=== PATIENT | female | born 1965 | race Caucasian/White ===

== ENCOUNTER 2019-11-27 13:44 | Outpatient (REF) | payer OTHER, SELFPAY ==
[2019-11-27 17:27] LABS: Estimated Average Glucose 301 mg/dL; Hemoglobin A1c % 12.1 %
[2019-11-27 17:33] LABS: Creatinine Urine 68.24 mg/dL; Microalbum/Creatinine Ratio Ur 13.1 ug/mg cr
== END 2019-11-27 13:45 | disposition home or self-care (01) ==
LOC: HO.HMGCLDS 13:44
PROVIDERS: PCP Internal Medicine; Visit Provider Internal Medicine
DX: E11.65 Type 2 diabetes mellitus with hyperglycemia (principal); E78.2 Mixed hyperlipidemia; E66.9 Obesity, unspecified; I10 Essential (primary) hypertension
CPT/HCPCS: 82043; 83036

== ENCOUNTER 2019-12-06 16:06 | Outpatient (REF) | payer OTHER, SELFPAY ==
--- NOTE | 2019-12-06 16:20 | US_ITS ---
EXAMINATION: US SOFT TISSUE, NECK CLINICAL INFORMATION: Localized swelling/mass left neck COMPARISON: None TECHNIQUE: Linear high frequency ultrasound of the left neck soft tissues is targeted to the area of concern as indicated by the patient. Comparison imaging right neck also performed. FINDINGS: Palpable fullness corresponds to 3 lymph nodes at level 3 left neck each approximately 0.9 cm short axis with normal renetta architecture and normal color flow. There are no cystic nodes or nodes with calcification. There is no cystic or solid soft tissue mass. No edema tracking in soft tissue planes. Comparison imaging right neck also shows a similar appearing node level 3 measuring 0.9 cm with normal renetta architecture. US/US soft tiss head and/or neck IMPRESSION: The palpable fullness left neck corresponds to 3 lymph nodes with normal renetta architecture and color flow, each approximately 0.9 cm. Otherwise, no cystic or solid mass or edema tracking in soft tissue plane.
== END 2019-12-06 16:07 | disposition home or self-care (01) ==
LOC: HO.HMGCX 16:06
PROVIDERS: PCP Internal Medicine; Visit Provider Nurse Practitioner Family
DX: R22.1 Localized swelling, mass and lump, neck (principal)
CPT/HCPCS: 76536

== ENCOUNTER 2020-03-26 10:41 | Outpatient (REF) | payer OTHER, SELFPAY ==
[2020-03-26 13:57] LABS: MANUAL DIFF FLAG NO
[2020-03-26 14:14] LABS: Basophils Percent Auto 0.4 % (0-2); Eosinophils Absolute Auto 0.2 X10*3/uL (0.0-0.4); Eosinophils Percent Auto 2.2 % (0-4); Hematocrit 38.6 % (37-47); Hemoglobin 12.5 g/dl (12.0-16.0); Imm Gran Abs Auto 0.02 X10*3/uL (0.00-0.03); Imm Gran Pct Auto 0.2 % (0.0-0.4); Lymphocytes Absolute Auto 2.4 X10*3/uL (1.2-4.9); Lymphocytes Percent Auto 28.3 % (20-40); Mean Corpuscular HGB Conc 32.4 g/dl (31.0-35.0); Mean Corpuscular Volume 86.4 fL (80-98); Mean Platelet Volume 10.9 fL (9.4-12.3); Monocytes Absolute Auto 0.5 X10*3/uL (0.1-1.2); Monocytes Percent Auto 5.4 % (2-11); Neutrophils Absolute Auto 5.3 X10*3/uL (2.0-8.3); Neutrophils Percent Auto 63.5 % (45-73); Platelet Count 272 X10*3/uL (160-400); Red Blood Count 4.47 X10*6/uL (4.20-5.50); Red Cell Distribution Width 13.1 % (11.0-16.0); White Blood Count 8.3 X10*3/uL (4.8-10.8)
[2020-03-26 14:25] LABS: Alanine Aminotransferase 26 U/L (0-31); Anion Gap 17 (12-20); Aspartate Amino Transferase 23 U/L (5-31); Blood Urea Nitrogen 17 mg/dL (9-16); Calcium 9.7 mg/dL (8.4-10.2); Carbon Dioxide 28 mmol/L (22-29); Chloride 97 mmol/L (96-108); Cholesterol 191 mg/dL; Estimated Glomerular Filt Rate > 60; Glucose Fasting 146 mg/dL (60-99); HDL Cholesterol 39 mg/dL; LDL Cholesterol Calculated 109 mg/dl; Potassium 3.5 mmol/L (3.3-5.1); Sodium 138 mmol/L (135-145); Triglycerides 218 mg/dL
[2020-03-26 14:52] LABS: TSH reflex Free T4 4.31 uIU/mL (0.32-4.0)
[2020-03-26 15:31] LABS: Free T4 (Free Thyroxine) 1.19 ng/dL (0.71-1.85)
== END 2020-03-26 10:42 | disposition home or self-care (01) ==
LOC: HO.HMGCLDS 10:41
PROVIDERS: Nurse Practitioner Family; PCP Internal Medicine; Visit Provider Internal Medicine
DX: E11.65 Type 2 diabetes mellitus with hyperglycemia (principal); E66.9 Obesity, unspecified; E78.2 Mixed hyperlipidemia; I10 Essential (primary) hypertension; R22.1 Localized swelling, mass and lump, neck; M54.2 Cervicalgia
CPT/HCPCS: 36415; 80048; 80061; 84439; 84443; 84450; 84460; 85025

== ENCOUNTER → 2020-05-20 09:04 | Outpatient (BNVA) | payer OTHER, SELFPAY | PROVIDERS: PCP Internal Medicine; Visit Provider Nurse Practitioner Gerontology | DX: E11.65 Type 2 diabetes mellitus with hyperglycemia (principal); E78.5 Hyperlipidemia, unspecified; I10 Essential (primary) hypertension; E66.01 Morbid (severe) obesity due to excess calories; Z68.41 Body mass index [BMI] 40.0-44.9, adult; R79.89 Other specified abnormal findings of blood chemistry | CPT/HCPCS: 82947 ==

== ENCOUNTER 2020-05-20 10:52 | Outpatient (REF) | payer OTHER, SELFPAY ==
[2020-05-20 12:53] LABS: Free T4 (Free Thyroxine) 0.95 ng/dL (0.71-1.85); Thyroid Stimulating Hormone 4.48 uIU/mL (0.32-4.0)
[2020-05-21 10:47] LABS: Thyroglobulin Antibodies <1 IU/mL (< or = 1); Thyroid Peroxidase Antibodies <1 IU/mL (<9)
== END 2020-05-20 10:53 | disposition home or self-care (01) ==
LOC: HO.10HDL 10:52
PROVIDERS: Visit Provider Nurse Practitioner Gerontology
DX: R94.6 Abnormal results of thyroid function studies (principal)
CPT/HCPCS: 36415; 84439; 84443; 86376; 86800

== ENCOUNTER → 2020-06-05 09:03 | Outpatient (BNVA) | payer OTHER, SELFPAY | PROVIDERS: PCP Internal Medicine; Visit Provider Dietitian, Registered | DX: E11.65 Type 2 diabetes mellitus with hyperglycemia (principal) | CPT/HCPCS: 97802 ==

== ENCOUNTER 2021-01-08 12:13 | Emergency (ER) | payer OTHER, SELFPAY ==
[2021-01-08 12:22] VITALS: BP 120/77; PULSE 89; RESP 18; TEMP 36.6; O2SAT 99; BMI 39.9
[2021-01-08 12:31] LABS: Glucose, Whole Blood 368 mg/dL (60-115)
[2021-01-08 13:40] LABS: Hematocrit 41.4 % (37.0-47.0); Mean Corpuscular HGB Conc 33.8 g/dl (31.0-35.0); Mean Corpuscular Hemoglobin 28.5 pg (27.0-33.0); Mean Corpuscular Volume 84.1 fL (80.0-98.0); Mean Platelet Volume 11.5 fL (9.4-12.3); Platelet Count 264 X10*3/uL (160-400); Red Blood Count 4.92 X10*6/uL (4.20-5.50); Red Cell Distribution Width 13.1 % (11.0-16.0); White Blood Count 12.1 X10*3/uL (4.8-10.8)
[2021-01-08 13:57] LABS: Anion Gap 14 (12-20); Blood Urea Nitrogen 15 mg/dL (9-16); Calcium 9.7 mg/dL (8.4-10.2); Carbon Dioxide 25 mmol/L (22-29); Chloride 100 mmol/L (96-108); Creatinine Clr Calc Pharmacy 80.5; Estimated Glomerular Filt Rate 59; Glucose Random 393 mg/dL (60-115); Lipase 182 U/L (8-78); Potassium 4.2 mmol/L (3.3-5.1); Sodium 135 mmol/L (135-145)
--- NOTE | 2021-01-08 14:14 | ED.GENADULT ---
HPI - General Adult General Chief complaint: General Medical Stated complaint: HBS Time Seen by Provider: 01/08/21 14:14 Source: patient Mode of arrival: ambulatory Limitations: no limitations History of Present Illness HPI narrative: 55-year-old female with past medical history of hypothyroidism, diabetes, hypertension, hyperlipidemia, obesity, is here today for complaints of weakness, malaise, excessive thirst. Patient reports that she was unable to check her blood sugar in the last few days. Patient is on metformin 1000 mg twice a day, Jardiance 10 mg daily, Trulicity 0.75 mg weekly. Patient reports that for the last 2 weeks she has not taken her Trulicity. Patient reports that by mistake the medication was taken out of the refrigerator and was placed on top of the refrigerator and she was not able to use it. Patient denies any nausea, vomiting, diarrhea, chest pain, palpitation, SOB with or without exertion. Onset (ago): day(s) Related Data Home Medications Medication Instructions Recorded Confirmed dextroamphetamine-amphetamine 20 1 tab PO BID 03/28/20 05/20/20 mg tablet buprenorphine 8 mg-naloxone 2 mg 10 mg SUBLINGUAL BID 05/20/20 05/20/20 sublingual film lamotrigine 25 mg tablet 25 mg PO tab 05/20/20 05/20/20 sertraline 100 mg tablet 100 mg PO Q OTHER DAY PRN tab 05/20/20 05/20/20 metformin 500 mg tablet 500 mg PO BEDTIME tab 06/02/20 Previous Rx's Medication Instructions Recorded blood-glucose meter (FreeStyle #1 ea 12/05/19 Lite Meter) FreeStyle Lancets 28 gauge #100 ea NS 05/20/20 (lancets) FreeStyle Lite Strips (blood sugar #100 ea NS 05/20/20 diagnostic) eszopiclone 2 mg tablet 2 mg PO BEDTIME #10 tab 07/15/20 empagliflozin 10 mg tablet 10 mg PO QAM #30 tab 07/30/20 (Jardiance) atorvastatin 10 mg tablet 10 mg PO DAILY #90 tab 10/21/20 hydrochlorothiazide 25 mg tablet 25 mg PO QAM #90 tab 10/21/20 olmesartan 20 mg tablet 20 mg PO DAILY #90 tab 10/21/20 dulaglutide 0.75 mg/0.5 mL 0.75 mg (0.5 mL) SUBCUT QWEEK #6 ml 11/03/20 subcutaneous pen injector (Trulicity) metformin 500 mg tablet 1,000 mg PO BID #360 tab 11/10/20 levothyroxine 25 mcg tablet 25 mcg PO DAILY #90 tab 11/11/20 celecoxib 200 mg capsule 200 mg PO DAILY PRN #30 cap 01/06/21 dulaglutide 0.75 mg/0.5 mL 0.75 mg (0.5 mL) SUBCUT QWEEK #2 ml 01/08/21 subcutaneous pen injector (Trulicity) Allergies Allergy/AdvReac Type Severity Reaction Status Date / Time No Known Allergies Allergy Verified 03/28/20 13:12 Review of Systems Review of Systems: Constitutional : No Weight loss, No Fever, No Chills, No Night Sweats, Fatigue, Malaise ENT/Mouth : No Hearing loss, No Ear Pain, No Nasal Congestion, No Sinus Pain, No Hoarseness, No sore throat, No Rhinorrhea, No Swallowing Difficulty Eyes: No Eye Pain, No Swelling, No Redness, No Foreign Body, No Discharge, No Vision Changes Cardiovascular : No Chest Pain, No SOB, No Dyspnea on Exertion, No Orthopnea, No Edema, No Palpitations Respiratory : No Cough, No Sputum, No Wheezing, No Smoke Exposure, No Dyspnea Gastrointestinal : No Nausea, No Vomiting, No Diarrhea, No Constipation, No abdominal Pain, No Hematochezia, No Melena Genitourinary : no irregular bleeding, No Dysuria, No Urinary Frequency, No Hematuria, No Urinary Incontinence, No Urgency, No Flank Pain, No Urinary Flow Changes, No Hesitancy Musculoskeletal : No joint pain, No Myalgias, No Joint Swelling Skin : No Skin Lesions, No rash Neuro : No Weakness, No Numbness, No Paresthesias, No Loss of Consciousness, No Dizziness, No Headache Psych : No Anxiety/Panic, No Depression, No SI/HI/AH/VH, No Social Issues, Endocrine: Patient reports that she has been feeling very thirsty in the past few weeks drinking lots of fluids. Yes all other systems are reviewed and are negative PMFSH Past Medical History Medical History Attention deficit disorder (ADD) Degenerative disc disease, lumbar Depression Diabetes mellitus with hyperglycemia, without long-term current use of insulin Essential hypertension Hyperlipidemia LDL goal <100 Mixed dyslipidemia Obesity Obesity due to excess calories Obstructive sleep apnea on CPAP Opiate addiction Surgical History History of lumbar fusion Hx of mammogram Family History Family History Brother Diabetes mellitus Father Diabetes mellitus Mother Diabetes mellitus Coronary artery disease Son Opiate addiction Daughter Attention deficit disorder (ADD), child, with hyperactivity Social History Social History Household Members: Spouse Alcohol intake: never Patient Tobacco Use Status: Never used Tobacco Use of substances other than those prescribed or required for medical reasons: No Advance Directives: No Advance Directives Information Provided: No Physical Exam Vital Signs: Vital Signs: Last Vital Signs Temp 98 F 01/08/21 12:22 Pulse 77 01/08/21 15:20 Resp 18 01/08/21 15:20 BP 137/73 01/08/21 15:20 Pulse Ox 100 01/08/21 15:20 BMI result Body Mass Index 39.9 Const: General: healthy appearing, no acute distress and well developed Nutritional Appearance: well nourished Orientation/consciousness: patient oriented x3 HENMT: Head: Yes normal to inspection, Yes normocephalic and Yes atraumatic Face and sinus: Yes normal facial exam Mouth: Normal oral and palatal mucosa present Throat: Yes posterior oropharynx normal, Yes tonsils normal and Yes uvula midline Eyes: General: appearance normal, both eyes and all related structures Neck: Neck: Yes normal visual inspection, Yes full ROM and Yes trachea midline Thyroid: Thyroid normal Resp: Effort & Inspection: normal respiratory effort, able to speak in complete sentences, no tracheal deviation and symmetric chest movement Auscultation: clear to auscultation bilaterally Cardio: Jugular venous distension: no JVD Rate: regular rate Heart sounds: S1 normal heart sound present, S2 normal heart sound present, no gallops and no murmurs GI: Inspection: Yes normal to inspection and No distended Palpation (GI): Soft to palpation, not firm, nontender and No hepatosplenomegaly present Auscultation: normal bowel sounds : General: Yes no CVA tenderness Back/Spine/Pelvis: Back: no CVA tenderness Skin: General skin exam: elasticity normal, turgor normal and dry skin Neuro: General: patient oriented x3 Psych: Appearance: grossly normal Mental Status: mental status grossly normal Speech and movement: Normal speech and movement present Affect: normal affect Attitude: cooperative Thought process: Normal thought process present Thought content: Normal thought content present Insight: Good insight present (Psych) Judgement: Good judgement present (Psych) Course Course Course Narrative: 55-year-old female with past medical history of hypothyroidism, diabetes, hypertension, hyperlipidemia, obesity, degenerative disc disease, obstructive sleep apnea is here today for complaints of malaise and feeling tired for the last few days. In the last couple days patient is having symptoms of polydipsia and polyuria. Patient states that she is unable to check her blood sugar for the last few days. Patient reports that when she was trying to stick her fingers she did not get any blood so she was unable to check that. Discussed with her that she can wash her hands in warm water rubbing hands vigorously to increase the blood flow. Patient reports that she has been trying to call her PCP and her diabetic provider and unable to get an appointment till end of the month. Patient reports that couple weeks ago before things given someone took her Trulicity out of the refrigerator and put it on top of the refrigerator and she was unable to use it. Patient reports that she has not used her Trulicity for 2 weeks now. Has not had any refills on it. Patient takes metformin 1000 mg med in the morning and at night as well as Jardiance daily. Will give her 5 units of insulin fluids and will recheck her blood sugar. Basic lab work done and it's all negative. Normal anion gap. Reevaluation(s) Reevaluation #1: Blood sugar recheck 222. Urine is negative for ketones. will send patient home to follow-up with PCP. I will order Trulicity for her as patient does not have it anymore at home. Patient has an appointment with her diabetic provider and was urged to call for earlier appointment. Patient is agreeable to plan of care and verbalizes understanding of instructions. The patient questions answered. Medical Decision Making Lab Data Result diagrams: 01/08/21 13:28 01/08/21 13:28 Labs: Lab Results 01/08/21 01/08/21 01/08/21 Range/Units 12:26 13:28 13:28 WBC 12.1 H (4.8-10.8) X10*3/uL RBC 4.92 (4.20-5.50) X10*6/uL Hgb 14.0 (12.0-16.0) g/dl Hct 41.4 (37.0-47.0) % MCV 84.1 (80.0-98.0) fL MCH 28.5 (27.0-33.0) pg MCHC 33.8 (31.0-35.0) g/dl RDW 13.1 (11.0-16.0) % Plt Count 264 (160-400) X10*3/uL MPV 11.5 (9.4-12.3) fL Absolute Nucleated RBC 0.000 (0.0-0.012) X10*3/uL Nucleated RBC % (auto) 0.0 (0.0-0.2) /100WBC Sodium 135 (135-145) mmol/L Potassium 4.2 (3.3-5.1) mmol/L Chloride 100 (96-108) mmol/L Carbon Dioxide 25 (22-29) mmol/L Anion Gap 14 (12-20) BUN 15 (9-16) mg/dL Creatinine 0.98 (0.5-1.4) mg/dL Estim Creat Clear Calc 80.5 Estimated GFR 59 POC Glucose 368 H* (60-115) mg/dL Random Glucose 393 H* (60-115) mg/dL Calcium 9.7 (8.4-10.2) mg/dL Lipase 182 H (8-78) U/L Urine Color Urine Appearance Urine pH (5.0-8.0) Ur Specific [place] (1.005-1.025) Urine Protein (NEG-TRACE) MG/DL Urine Glucose (UA) (NEG) MG/DL Urine Ketones (NEG) MG/DL Urine Blood (NEG) Urine Nitrite (NEG) Ur Leukocyte Esterase (NEG) Urine RBC (0) /HPF Urine WBC (0-4) /HPF Ur Squamous Epith Cells /LPF Urine Bacteria /LPF Urine Yeast /HPF COVID-19 (TONYA) (Negative) COVID-19 Clin Com 01/08/21 01/08/21 01/08/21 Range/Units 14:50 14:50 16:26 WBC (4.8-10.8) X10*3/uL RBC (4.20-5.50) X10*6/uL Hgb (12.0-16.0) g/dl Hct (37.0-47.0) % MCV (80.0-98.0) fL MCH (27.0-33.0) pg MCHC (31.0-35.0) g/dl RDW (11.0-16.0) % Plt Count (160-400) X10*3/uL MPV (9.4-12.3) fL Absolute Nucleated RBC (0.0-0.012) X10*3/uL Nucleated RBC % (auto) (0.0-0.2) /100WBC Sodium (135-145) mmol/L Potassium (3.3-5.1) mmol/L Chloride (96-108) mmol/L Carbon Dioxide (22-29) mmol/L Anion Gap (12-20) BUN (9-16) mg/dL Creatinine (0.5-1.4) mg/dL Estim Creat Clear Calc Estimated GFR POC Glucose 222 H (60-115) mg/dL Random Glucose (60-115) mg/dL Calcium (8.4-10.2) mg/dL Lipase (8-78) U/L Urine Color STRAW Urine Appearance CLEAR Urine pH 5.5 (5.0-8.0) Ur Specific [place] 1.020 (1.005-1.025) Urine Protein NEG (NEG-TRACE) MG/DL Urine Glucose (UA) >=1000 H (NEG) MG/DL Urine Ketones NEG (NEG) MG/DL Urine Blood NEG (NEG) Urine Nitrite NEG (NEG) Ur Leukocyte Esterase NEG (NEG) Urine RBC 0-2 (0) /HPF Urine WBC 0 (0-4) /HPF Ur Squamous Epith Cells 2+ /LPF Urine Bacteria NONE /LPF Urine Yeast TRACE /HPF COVID-19 (TONYA) Negative (Negative) COVID-19 Clin Com See Note Discharge Plan Discharge Clinical Impression: Hyperglycemia Patient Disposition: Home, Self-Care Instructions: Diabetic Hyperglycemia (ED) Additional Instructions: You were seen here today for high blood glucose level. 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 Prescriptions: New Trulicity 0.75 mg/0.5 mL pen injector 0.75 mg subcut QWEEK Qty: 2 RF: 0 No Action (DME) blood-glucose meter [FreeStyle Lite Meter] Kit See Rx Instructions .ROUTE .MEDSUPPLY Qty: 1 RF: 0 metformin 500 mg tablet 500 mg PO BEDTIME RF: 0 eszopiclone 2 mg tablet 2 mg PO BEDTIME Qty: 10 RF: 0 Jardiance 10 mg tablet 10 mg PO QAM Qty: 30 RF: 0 olmesartan 20 mg tablet 20 mg PO DAILY Qty: 90 RF: 0 atorvastatin 10 mg tablet 10 mg PO DAILY Qty: 90 RF: 0 hydrochlorothiazide 25 mg tablet 25 mg PO QAM Qty: 90 RF: 0 Trulicity 0.75 mg/0.5 mL pen injector 0.75 mg subcut QWEEK Qty: 6 RF: 1 metformin 500 mg tablet 1,000 mg PO BID Qty: 360 RF: 1 levothyroxine 25 mcg tablet 25 mcg PO DAILY Qty: 90 RF: 0 celecoxib 200 mg capsule 200 mg PO DAILY PRN (Reason: pain) Qty: 30 RF: 0 dextroamphetamine-amphetamine 20 mg tablet 1 tab PO BID RF: 0 lamotrigine 25 mg tablet 25 mg PO RF: 0 sertraline 100 mg tablet 100 mg PO Q OTHER DAY PRNRF: 0 buprenorphine-naloxone 8-2 mg film 10 mg sublingual BID RF: 0 (DME) lancets [FreeStyle Lancets] 28 gauge misc See Rx Instructions .ROUTE .MEDSUPPLY Qty: 100 RF: 5 (DME) FreeStyle Lite Strips Strip See Rx Instructions .ROUTE .MEDSUPPLY Qty: 100 RF: 6 Referrals: Lucrecia Fitch MD [Primary Care Provider] - 1 week Interventions: ED Discharge Assessment Last Done: 01/08/21 17:48 Discharge Date/Time: 01/08/21 17:48
[2021-01-08 14:59] LABS: Appearance Urine CLEAR; Color Urine STRAW; Glucose Urine UA >=1000 MG/DL (NEG); Leukocyte Esterase Urine NEG (NEG); Nitrite Urine NEG (NEG); PH 5.5 (5.0-8.0); Urine Blood NEG (NEG); Urine Ketones NEG (NEG); Urine Protein NEG (NEG-TRACE)
[2021-01-08 15:07] LABS: Squamous Epithelial Cell Urine 2+ /LPF; WBC Urine 0 /HPF (0-4)
[2021-01-08 15:08] LABS: RBC Urine 0-2 /HPF (0)
[2021-01-08] MEDS: 0.9 % Sodium Chloride 1,000 ML 999 ML IV (15:13)
[2021-01-08 15:14] LABS: COVID-19 Test Negative (Negative); IDNOW Serial# 9DD0AD1C
[2021-01-08] MEDS: Insulin Regular, Human 100 UNIT/ML 3 ML VIAL IVPUSH (15:18)
[2021-01-08 15:20] VITALS: BP 137/73; PULSE 77; RESP 18; O2SAT 100
[2021-01-08 16:29] LABS: Glucose, Whole Blood 222 mg/dL (60-115)
--- NOTE | 2021-01-08 16:31 | PC.NURSE ---
pt states she's feeling fine . still is tired.
== END 2021-01-08 17:48 | disposition home or self-care (01) ==
PROVIDERS: Nurse Practitioner Family; Emergency Provider Emergency Medicine Emergency Medical Services; PCP Internal Medicine
DX: E11.65 Type 2 diabetes mellitus with hyperglycemia (principal); Z20.822 Contact with and (suspected) exposure to COVID-19; R53.81 Other malaise; E78.5 Hyperlipidemia, unspecified; F11.20 Opioid dependence, uncomplicated; Z91.14 Patient's other noncompliance with medication regimen
CPT/HCPCS: 36415; 80048; 81001; 81003; 82947; 83690; 85027; 87635; 96361; 96374; 99284

== ENCOUNTER → 2021-01-15 11:04 | Outpatient (BNVA) | payer OTHER, SELFPAY | PROVIDERS: PCP Internal Medicine; Visit Provider Nurse Practitioner Gerontology | DX: E11.65 Type 2 diabetes mellitus with hyperglycemia (principal); E78.5 Hyperlipidemia, unspecified; E66.01 Morbid (severe) obesity due to excess calories; I10 Essential (primary) hypertension; Z68.41 Body mass index [BMI] 40.0-44.9, adult; E03.9 Hypothyroidism, unspecified; Z79.84 Long term (current) use of oral hypoglycemic drugs | CPT/HCPCS: 82947; 83036 ==

== ENCOUNTER 2021-05-20 13:54 | Outpatient (REF) | payer OTHER, SELFPAY ==
[2021-05-20 17:05] LABS: Alanine Aminotransferase 18 U/L (0-31); Anion Gap 17 (12-20); Aspartate Amino Transferase 13 U/L (5-31); Blood Urea Nitrogen 15 mg/dL (9-16); Carbon Dioxide 24 mmol/L (22-29); Chloride 101 mmol/L (96-108); Estimated Average Glucose 197 mg/dL; Estimated Glomerular Filt Rate > 60; Glucose Random 310 mg/dL (60-115); Hemoglobin A1c % 8.5 %; Potassium 4.1 mmol/L (3.3-5.1); Sodium 138 mmol/L (135-145)
[2021-05-20 17:29] LABS: Free T4 (Free Thyroxine) 1.15 ng/dL (0.71-1.85); Thyroid Stimulating Hormone 1.16 uIU/mL (0.32-4.0)
[2021-05-23 08:42] LABS: LDL Cholesterol Direct 124 mg/dL (<100)
== END 2021-05-20 13:55 | disposition home or self-care (01) ==
LOC: HO.HMGCLDS 13:54
PROVIDERS: PCP Internal Medicine; Visit Provider Internal Medicine
DX: E11.65 Type 2 diabetes mellitus with hyperglycemia (principal); I10 Essential (primary) hypertension; E03.9 Hypothyroidism, unspecified; E78.5 Hyperlipidemia, unspecified; E66.09 Other obesity due to excess calories; R79.89 Other specified abnormal findings of blood chemistry
CPT/HCPCS: 36415; 80048; 83036; 83721; 84439; 84443; 84450; 84460

== ENCOUNTER → 2021-06-15 11:39 | Outpatient (BNVA) | payer OTHER, SELFPAY | PROVIDERS: PCP Internal Medicine; Visit Provider Nurse Practitioner Gerontology | DX: E78.5 Hyperlipidemia, unspecified (principal); E03.9 Hypothyroidism, unspecified; E66.01 Morbid (severe) obesity due to excess calories; I10 Essential (primary) hypertension; Z68.41 Body mass index [BMI] 40.0-44.9, adult; Z79.899 Other long term (current) drug therapy | CPT/HCPCS: 82947; 96372 ==

== ENCOUNTER → 2021-07-31 08:06 | Outpatient (BNVA) | payer OTHER, SELFPAY | PROVIDERS: PCP Internal Medicine; Visit Provider Nurse Practitioner Gerontology | DX: E11.65 Type 2 diabetes mellitus with hyperglycemia (principal); E03.9 Hypothyroidism, unspecified; E78.5 Hyperlipidemia, unspecified; I10 Essential (primary) hypertension; E66.01 Morbid (severe) obesity due to excess calories; Z68.41 Body mass index [BMI] 40.0-44.9, adult; Z79.4 Long term (current) use of insulin | CPT/HCPCS: 82947 ==

== ENCOUNTER 2021-10-28 11:45 | Outpatient (REF) | payer OTHER, SELFPAY ==
--- NOTE | ~2021-10-28 | XR_ITS ---
EXAMINATION: XR LUMBOSACRAL SPINE CLINICAL INFORMATION: Low back pain COMPARISON: MRI from 11/12/2015 TECHNIQUE: Three views of the lumbosacral spine. FINDINGS: Posterior pedicle screws and fusion rods seen at L5 and S1 vertebral bodies. No evidence of hardware complications. Severe degenerative disc disease with disc space narrowing and osteophyte formation is seen at L5/S1. There is a grade 1 anterolisthesis of L5 on S1 patient is status post laminectomy at the L5. Normal vertebral body height and alignment seen otherwise throughout the lumbar spine. Disc spaces are otherwise well maintained XR/XR lumbar spine 2-3V IMPRESSION: Degenerative changes and postsurgical changes at L5/S1 as described above. Stable anterolisthesis of L5 on S1
[2021-10-28 14:21] LABS: Estimated Average Glucose 229 mg/dL; Hemoglobin A1c % 9.6 %
[2021-10-28 14:31] LABS: Alanine Aminotransferase 16 U/L (0-31); Anion Gap 17 (12-20); Aspartate Amino Transferase 16 U/L (5-31); Blood Urea Nitrogen 14 mg/dL (9-16); Calcium 9.6 mg/dL (8.4-10.2); Carbon Dioxide 23 mmol/L (22-29); Chloride 105 mmol/L (96-108); Cholesterol 214 mg/dL; Estimated Glomerular Filt Rate > 60; Glucose Fasting 135 mg/dL (60-99); HDL Cholesterol 35 mg/dL; LDL Cholesterol Calculated 138 mg/dl; Potassium 4.2 mmol/L (3.3-5.1); Sodium 141 mmol/L (135-145); Triglycerides 207 mg/dL
[2021-10-28 14:52] LABS: Thyroid Stimulating Hormone 3.35 uIU/mL (0.32-4.0)
[2021-10-28 17:57] LABS: Creatinine Urine 66.34 mg/dL; Microalbum/Creatinine Ratio Ur 42.2 ug/mg cr
== END 2021-10-28 11:46 | disposition home or self-care (01) ==
LOC: HO.HMGCX 11:45
PROVIDERS: PCP Internal Medicine; Visit Provider Internal Medicine
DX: E11.65 Type 2 diabetes mellitus with hyperglycemia (principal); G89.29 Other chronic pain; M54.50 Low back pain, unspecified; E78.5 Hyperlipidemia, unspecified; I10 Essential (primary) hypertension; E03.9 Hypothyroidism, unspecified; Z98.1 Arthrodesis status
CPT/HCPCS: 36415; 72100; 80048; 80061; 82043; 83036; 84439; 84443; 84450; 84460

== ENCOUNTER → 2021-12-03 15:34 | Outpatient (BNVA) | payer OTHER, SELFPAY | PROVIDERS: PCP Internal Medicine; Visit Provider Internal Medicine Endocrinology, Diabetes & Metabolism | DX: E11.65 Type 2 diabetes mellitus with hyperglycemia (principal); E03.9 Hypothyroidism, unspecified; I10 Essential (primary) hypertension; Z79.4 Long term (current) use of insulin | CPT/HCPCS: 82947 ==

== ENCOUNTER → 2022-01-25 12:38 | Outpatient (BNVA) | payer OTHER, SELFPAY | PROVIDERS: PCP Internal Medicine; Visit Provider Registered Nurse Diabetes Educator | DX: E11.65 Type 2 diabetes mellitus with hyperglycemia (principal) ==

== ENCOUNTER 2022-04-14 21:12 | Emergency (ER) | payer OTHER, SELFPAY ==
--- NOTE | ~2022-04-14 | XR_ITS ---
EXAMINATION: XR CHEST CLINICAL INFORMATION: Cough COMPARISON: Chest 05/18/2016 TECHNIQUE: Frontal view of the chest was obtained. FINDINGS: No significant abnormality is noted involving the heart, lungs, mediastinum, bony thorax or soft tissues. XR/XR chest 1V IMPRESSION: Unremarkable chest examination.
[2022-04-14 21:16] VITALS: BP 141/80; PULSE 88; RESP 22; TEMP 36.4; O2SAT 95; BMI 39.1
[2022-04-14 21:47] LABS: COVID-19 Test Negative (Negative); IDNOW Serial# 55D5AD1C; IDNOW Serial# 6674DD1D; Influenza A Negative (Negative); Influenza B2 Negative (Negative)
--- NOTE | 2022-04-14 22:10 | ED.SOB ---
HPI - SOB/Dyspnea General Chief Complaint: Dyspnea Stated Complaint: shortness of breath, deep cough Time Seen by Provider: 04/14/22 22:09 Source: patient Mode of arrival: ambulatory Limitations: no limitations History of Present Illness HPI Narrative: Patient obese history of diabetes sleep apnea using CPAP at night high cholesterol nonsmoker complaining of cough mostly dry for last few weeks unable to sleep in the night because of cough feel short of breath on slight ambulation or exertion also noticed increased leg swelling. Denies any calf pain no chest pain or palpitation no fever or chills patient taking lisinopril for hypertension Related Data Home Medications Medication Instructions Recorded Confirmed dextroamphetamine-amphetamine 20 1 tab PO BID 03/28/20 07/31/21 mg tablet blood-glucose meter (Accu-Chek 01/15/21 07/31/21 Guide Glucose Meter) sertraline 100 mg tablet mg PO 10/16/21 clonazepam 0.5 mg tablet 0.5 mg PO TID 12/03/21 clonazepam 1 mg tablet 1 mg PO TID PRN 12/03/21 Previous Rx's Medication Instructions Recorded pen needle, diabetic 32 gauge x #50 ea 01/15/21 (BD Cande 2nd Gen Pen Needle) blood sugar diagnostic (Accu-Chek #100 ea 01/20/21 Guide test strips) flash glucose sensor (FreeStyle #2 ea 03/20/21 Leida 2 Sensor kit) glucose 4 gram chewable tablet 12 g PO Q15M PRN hypoglycemia #60 06/15/21 (Dex4 Glucose) tabs insulin aspart U-100 100 unit/mL 5 - 7 unit (0.05 - 0.07 mL) subcut 07/31/21 (3 mL) subcutaneous pen (Novolog TID 90 days #15 mL FlexPen U-100 Insulin aspart) levothyroxine 25 mcg tablet 25 mcg PO DAILY #90 tabs 07/31/21 celecoxib 200 mg capsule 200 mg PO DAILY PRN pain #30 caps 09/17/21 lisinopril 5 mg tablet 2.5 mg PO DAILY #45 tabs 10/09/21 metformin 500 mg tablet 500 mg PO BIDWMEAL 30 days #60 tabs 10/31/21 atorvastatin 40 mg tablet 80 mg PO DAILY #60 tabs 12/03/21 insulin degludec 200 unit/mL (3 50 unit (0.25 mL) subcut BEDTIME 12/03/21 mL) subcutaneous pen (Tresiba 84 days #21 mL FlexTouch U-200 insulin) empagliflozin 25 mg tablet 25 mg PO QAM #90 tabs 12/18/21 (Jardiance) tirzepatide 5 mg/0.5 mL 5 mg (0.5 mL) subcut QWEEK #2 mL 01/25/22 subcutaneous pen injector (Eun) benzonatate 200 mg capsule 200 mg PO TID PRN cough #30 caps 04/15/22 hydrochlorothiazide 25 mg tablet 25 mg PO QAM #30 tabs 04/15/22 Allergies Allergy/AdvReac Type Severity Reaction Status Date / Time No Known Allergies Allergy Verified 04/14/22 21:19 Review of Systems Review of Systems: Constitutional : No Weight loss, No Fever, No Chills ENT/Mouth : No sore throat, No Rhinorrhea Eyes: No Eye Pain, No Swelling Cardiovascular : No Chest Pain, no palpitations Respiratory : ++ Cough, No Sputum, no shortness of breath Gastrointestinal : no Nausea, No Vomiting, No Diarrhea, No abdominal Pain, no black stools Genitourinary : No Dysuria, No Urinary Frequency Musculoskeletal : No joint pain, No Myalgias, No Joint Swelling Skin : No Skin Lesions, No rash Neuro : No Weakness, No Numbness, No Dizziness, No Headache Psych : No Anxiety/Panic, No Depression Heme/Lymph: No Bruising, No Lymphadenopathy Endocrine : No Polyuria, No Polydipsia All other systems reviewed and are negative Yes all other systems are reviewed and are negative [facility] Past Medical History Medical History Attention deficit disorder (ADD) Chronic low back pain Degenerative disc disease, lumbar Depression Diabetes mellitus with hyperglycemia, without long-term current use of insulin Essential hypertension Hyperlipidemia LDL goal <100 Obesity due to excess calories Obstructive sleep apnea on CPAP Opiate addiction Surgical History History of lumbar fusion Hx of foot surgery Hx of hand surgery Hx of mammogram Family History Family History Brother Diabetes mellitus Father Diabetes mellitus Mother Diabetes mellitus Coronary artery disease Son Opiate addiction Daughter Attention deficit disorder (ADD), child, with hyperactivity Other Mental health disorder Substance use disorder Social History Social History Household Members: Spouse Housing: House Alcohol intake: current Alcohol intake frequency: does not drink Patient Tobacco Use Status: Never used Tobacco e-Cigarette/Vaping Use: Never Used Advance Directives: No Current occupational status: unemployed Cognitive needs: No Hearing needs: No Vision needs: No Physical Exam Vital Signs: Vital Signs: Last Vital Signs Temp 98.2 F 04/14/22 23:29 Pulse 86 04/14/22 23:29 Resp 17 04/14/22 23:29 BP 139/73 04/14/22 23:29 Pulse Ox 96 04/14/22 23:29 O2 Del Method 04/14/22 23:29 BMI result Body Mass Index 39.1 Appearance: Alert. Oriented X3. No acute distress. Eyes: No pallor or icterus ENT: Pharynx normal. Oral Mucosa moist Neck: Normal inspection. Neck supple. CVS: Normal heart rate and rhythm. Pulses normal. Respiratory: No respiratory distress. Equal air entry bilateral, no wheezing/rales/rhonchi Abdomen: Soft and nontender. Bowel sounds are present, no mass palpable, no CVA tenderness Skin: Skin warm and dry. Normal skin color. Normal skin turgor. Extremities: Trace lower extremity edema. No calf tenderness Neuro: Oriented X 3. No motor deficit. No sensory deficit.No cerebellar signs , cranial nerves II-XII intact Medications Administered Discontinued Medications Generic Name Dose Route Start Last Admin Trade Name Freq PRN Reason Stop Dose Admin Benzonatate 200 mg 04/15/22 00:35 04/15/22 00:42 Benzonatate 100 Mg Capsule PO 04/15/22 00:36 200 mg ONCE ONE Administration Medical Decision Making Medical Decision Making [facility] Narrative: Patient with exertion dyspnea likely from deconditioning chest x-ray negative BNP normal D-dimer negative for PE patient is saturating 95% on room air discharge patient home Differential Diagnosis Pneumonia/COPD/sleep apnea/PE/CHF Lab Data [facility] Lab Attestation statement: I reviewed the patient's lab results. 04/14/22 22:58 04/14/22 22:58 Labs: Lab Results 03/08/23 03/08/23 03/08/23 Range/Units 21:21 21:21 22:58 WBC 11.2 H (4.8-10.8) X10*3/uL RBC 4.49 (4.20-5.50) X10*6/uL Hgb 12.2 (12.0-16.0) g/dl Hct 37.3 (37.0-47.0) % MCV 83.1 (80.0-98.0) fL MCH 27.2 (27.0-33.0) pg MCHC 32.7 (31.0-35.0) g/dl RDW 14.4 (11.0-16.0) % Plt Count 306 (160-400) X10*3/uL MPV 10.7 (9.4-12.3) fL Immature Gran % (Auto) 0.4 (0.0-0.4) % Neut % (Auto) 62.9 (45-73) % Lymph % (Auto) 27.2 (20-40) % [place] % (Auto) 5.0 (2-11) % Eos % (Auto) 4.0 (0-4) % Baso % (Auto) 0.5 (0-2) % Lymph # (Auto) 3.1 (1.2-4.9) X10*3/uL [place] # (Auto) 0.6 (0.1-1.2) X10*3/uL Eos # (Auto) 0.5 H (0.0-0.4) X10*3/uL Baso # (Auto) 0.1 (0.0-0.2) X10*3/uL Abs Immat Gran (auto) 0.05 H (0.00-0.03) X10*3/uL Absolute Neuts (auto) 7.0 (2.0-8.3) x10*3/uL Absolute Nucleated RBC 0.000 (0.0-0.012) X10*3/uL Nucleated RBC % (auto) 0.0 (0.0-0.2) /100WBC D-Dimer High Sensitivty NG/ML Sodium (135-145) mmol/L Potassium (3.3-5.1) mmol/L Chloride (96-108) mmol/L Carbon Dioxide (22-29) mmol/L Anion Gap (12-20) BUN (9-16) mg/dL Creatinine (0.5-1.4) mg/dL Estim Creat Clear Calc Estimated GFR Random Glucose (60-115) mg/dL Calcium (8.4-10.2) mg/dL Total Bilirubin (0.0-1.0) mg/dL AST (5-31) U/L ALT (0-31) U/L Alkaline Phosphatase (39-117) U/L B-Natriuretic Peptide (<100) pg/mL Total Protein (6.5-8.0) g/dL Albumin (3.5-5.0) g/dL COVID-19 (TONYA) Negative (Negative) COVID-19 Clin Com See Note Influenza Type A (BENNETT) Negative (Negative) Influenza Type B (BENNETT) Negative (Negative) Influenza A & B Note See Note 04/14/22 04/14/22 04/14/22 Range/Units 22:58 22:58 22:58 WBC (4.8-10.8) X10*3/uL RBC (4.20-5.50) X10*6/uL Hgb (12.0-16.0) g/dl Hct (37.0-47.0) % MCV (80.0-98.0) fL MCH (27.0-33.0) pg MCHC (31.0-35.0) g/dl RDW (11.0-16.0) % Plt Count (160-400) X10*3/uL MPV (9.4-12.3) fL Immature Gran % (Auto) (0.0-0.4) % Neut % (Auto) (45-73) % Lymph % (Auto) (20-40) % [place] % (Auto) (2-11) % Eos % (Auto) (0-4) % Baso % (Auto) (0-2) % Lymph # (Auto) (1.2-4.9) X10*3/uL [place] # (Auto) (0.1-1.2) X10*3/uL Eos # (Auto) (0.0-0.4) X10*3/uL Baso # (Auto) (0.0-0.2) X10*3/uL Abs Immat Gran (auto) (0.00-0.03) X10*3/uL Absolute Neuts (auto) (2.0-8.3) x10*3/uL Absolute Nucleated RBC (0.0-0.012) X10*3/uL Nucleated RBC % (auto) (0.0-0.2) /100WBC D-Dimer High Sensitivty < 150 NG/ML Sodium 138 (135-145) mmol/L Potassium 4.0 (3.3-5.1) mmol/L Chloride 103 (96-108) mmol/L Carbon Dioxide 27 (22-29) mmol/L Anion Gap 12 (12-20) BUN 11 (9-16) mg/dL Creatinine 0.83 (0.5-1.4) mg/dL Estim Creat Clear Calc 92.8 Estimated GFR > 60 Random Glucose 231 H (60-115) mg/dL Calcium 9.1 (8.4-10.2) mg/dL Total Bilirubin 0.4 (0.0-1.0) mg/dL AST 12 (5-31) U/L ALT 14 (0-31) U/L Alkaline Phosphatase 107 (39-117) U/L B-Natriuretic Peptide < 10 (<100) pg/mL Total Protein 6.8 (6.5-8.0) g/dL Albumin 4.0 (3.5-5.0) g/dL COVID-19 (TONYA) (Negative) COVID-19 Clin Com Influenza Type A (BENNETT) (Negative) Influenza Type B (BENNETT) (Negative) Influenza A & B Note Discharge Plan Discharge Clinical Impression: Breathlessness on exertion, Cough Patient Disposition: Home, Self-Care Instructions: Dyspnea (ED), Acute Cough (ED) Additional Instructions: Take cough drops and advised Your cough possible secondary to lisinopril Cough drops as advised if the cough continues you may have to stop lisinopril Water pill for leg swelling as needed daily Follow with PCP Prescriptions: New benzonatate 200 mg capsule 200 mg PO TID PRN (Reason: cough) Qty: 30 0RF hydrochlorothiazide 25 mg tablet 25 mg PO QAM Qty: 30 0RF No Action (DME) Accu-Chek Guide test strips Strip See Rx Instructions .Route Qty: 100 11RF Rx Instructions: As directed 3 times a day (DME) FreeStyle Leida 2 Sensor Kit See Rx Instructions .ROUTE .MEDSUPPLY Qty: 2 11RF Rx Instructions: As directed every 2 weeks celecoxib 200 mg capsule 200 mg PO DAILY PRN (Reason: pain) Qty: 30 1RF lisinopril 5 mg tablet 2.5 mg PO DAILY Qty: 45 1RF metformin 500 mg tablet 500 mg PO BIDWMEAL 30 Days Qty: 60 4RF Jardiance 25 mg tablet 25 mg PO QAM Qty: 90 1RF Mounjaro 5 mg/0.5 mL pen injector 5 mg subcut QWEEK Qty: 2 5RF dextroamphetamine-amphetamine 20 mg tablet 1 tab PO BID sertraline 100 mg tablet PO (DME) blood-glucose meter [Accu-Chek Guide Glucose Meter] [facility] [place] [facility] See Rx Instructions .Route Rx Instructions: As directed (DME) pen needle, diabetic [BD Cande 2nd Gen Pen Needle] 32 gauge x 5/32 needle See Rx Instructions .ROUTE .MEDSUPPLY Qty: 50 10RF Rx Instructions: As directed once daily glucose [Dex4 Glucose] 4 gram tablet,chewable 12 g PO Q15M PRN (Reason: hypoglycemia) Qty: 60 2RF Rx Instructions: until symptoms of low blood sugar are controlled insulin aspart U-100 [Novolog FlexPen U-100 Insulin] 100 unit/mL (3 mL) insulin pen 5 - 7 unit subcut TID 90 Days Qty: 15 2RF levothyroxine 25 mcg tablet 25 mcg PO DAILY Qty: 90 3RF clonazepam 1 mg tablet 1 mg PO TID PRN clonazepam 0.5 mg tablet 0.5 mg PO TID Tresiba FlexTouch U-200 200 unit/mL (3 mL) insulin pen 50 unit subcut BEDTIME 84 Days Qty: 21 2RF atorvastatin 40 mg tablet 80 mg PO DAILY Qty: 60 6RF Interventions: ED Discharge Assessment Last Done: 04/15/22 00:58 Discharge Date/Time: 04/15/22 01:00
[2022-04-14 22:53] VITALS: BP 136/77; PULSE 83; RESP 18; TEMP 36.7; O2SAT 96
[2022-04-14 23:04] LABS: Basophils Absolute Auto 0.1 X10*3/uL (0.0-0.2); Basophils Percent Auto 0.5 % (0-2); Eosinophils Absolute Auto 0.5 X10*3/uL (0.0-0.4); Hematocrit 37.3 % (37.0-47.0); Hemoglobin 12.2 g/dl (12.0-16.0); Imm Gran Abs Auto 0.05 X10*3/uL (0.00-0.03); Imm Gran Pct Auto 0.4 % (0.0-0.4); Lymphocytes Absolute Auto 3.1 X10*3/uL (1.2-4.9); Lymphocytes Percent Auto 27.2 % (20-40); MANUAL DIFF FLAG NO; Mean Corpuscular HGB Conc 32.7 g/dl (31.0-35.0); Mean Corpuscular Hemoglobin 27.2 pg (27.0-33.0); Mean Corpuscular Volume 83.1 fL (80.0-98.0); Mean Platelet Volume 10.7 fL (9.4-12.3); Monocytes Absolute Auto 0.6 X10*3/uL (0.1-1.2); Neutrophils Percent Auto 62.9 % (45-73); Platelet Count 306 X10*3/uL (160-400); Red Blood Count 4.49 X10*6/uL (4.20-5.50); Red Cell Distribution Width 14.4 % (11.0-16.0); White Blood Count 11.2 X10*3/uL (4.8-10.8)
[2022-04-14 23:17] LABS: D Dimer High Sensitivity < 150 NG/ML
[2022-04-14 23:25] LABS: Alanine Aminotransferase 14 U/L (0-31); Alkaline Phosphatase 107 U/L (39-117); Anion Gap 12 (12-20); Aspartate Amino Transferase 12 U/L (5-31); Bilirubin Total 0.4 mg/dL (0.0-1.0); Blood Urea Nitrogen 11 mg/dL (9-16); Calcium 9.1 mg/dL (8.4-10.2); Carbon Dioxide 27 mmol/L (22-29); Chloride 103 mmol/L (96-108); Creatinine Clr Calc Pharmacy 92.8; Estimated Glomerular Filt Rate > 60; Glucose Random 231 mg/dL (60-115); Sodium 138 mmol/L (135-145); Total Protein 6.8 g/dL (6.5-8.0)
[2022-04-14 23:29] VITALS: BP 139/73; PULSE 86; RESP 17; TEMP 36.8; O2SAT 96
[2022-04-15 00:20] LABS: B Type Natriuretic Peptide < 10 pg/mL (<100)
[2022-04-15] MEDS: Benzonatate 100 MG CAPSULE 200 MG PO (00:42)
== END 2022-04-15 01:00 | disposition home or self-care (01) ==
PROVIDERS: Emergency Provider Internal Medicine; PCP Internal Medicine
DX: R05.9 Cough, unspecified (principal); R06.02 Shortness of breath; Z20.822 Contact with and (suspected) exposure to COVID-19; E11.9 Type 2 diabetes mellitus without complications; I10 Essential (primary) hypertension; E78.5 Hyperlipidemia, unspecified; F11.20 Opioid dependence, uncomplicated; G47.33 Obstructive sleep apnea (adult) (pediatric); E66.9 Obesity, unspecified; Z68.39 Body mass index [BMI] 39.0-39.9, adult; Z99.89 Dependence on other enabling machines and devices; Z79.899 Other long term (current) drug therapy; Z79.02 Long term (current) use of antithrombotics/antiplatelets; Z79.4 Long term (current) use of insulin
CPT/HCPCS: 36415; 71045; 80053; 83880; 85025; 85379; 87502; 87635; 99283

== ENCOUNTER 2022-08-03 07:29 | Outpatient (REF) | payer OTHER, SELFPAY ==
[2022-08-03 11:42] LABS: Estimated Average Glucose 209 mg/dL; Hemoglobin A1c % 8.9 %
[2022-08-03 12:08] LABS: Alanine Aminotransferase 22 U/L (0-31); Anion Gap 16 (12-20); Aspartate Amino Transferase 16 U/L (5-31); Blood Urea Nitrogen 12 mg/dL (9-16); Calcium 9.5 mg/dL (8.4-10.2); Carbon Dioxide 24 mmol/L (22-29); Chloride 104 mmol/L (96-108); Cholesterol 231 mg/dL; Estimated Glomerular Filt Rate > 60; Glucose Fasting 199 mg/dL (60-99); HDL Cholesterol 34 mg/dL; LDL Cholesterol Calculated 142 mg/dl; Potassium 3.7 mmol/L (3.3-5.1); Sodium 140 mmol/L (135-145); Triglycerides 279 mg/dL
== END 2022-08-03 07:30 | disposition home or self-care (01) ==
LOC: HO.HMGCLDS 07:29
PROVIDERS: PCP Internal Medicine; Visit Provider Internal Medicine
DX: E11.65 Type 2 diabetes mellitus with hyperglycemia (principal); E78.5 Hyperlipidemia, unspecified; G89.29 Other chronic pain; I10 Essential (primary) hypertension; M54.50 Low back pain, unspecified; Z98.1 Arthrodesis status
CPT/HCPCS: 36415; 80048; 80061; 83036; 84450; 84460

== ENCOUNTER 2022-08-17 09:22 | Outpatient (AMB) | payer OTHER, SELFPAY ==
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
[2022-08-17 09:30] VITALS: BP 140/80; PULSE 96; O2SAT 95; BMI 42.9
[2022-08-17 10:19] VITALS: PULSE 78; O2SAT 96
== END 2022-08-17 10:16 | disposition home or self-care (01) ==
PROVIDERS: PCP Internal Medicine; Visit Provider Nurse Practitioner Family
DX: R06.09 Other forms of dyspnea (principal); G47.33 Obstructive sleep apnea (adult) (pediatric); Z99.89 Dependence on other enabling machines and devices; R40.0 Somnolence; R91.8 Other nonspecific abnormal finding of lung field
CPT/HCPCS: 94618; 99204; 99214

== ENCOUNTER → 2022-08-17 09:22 | Outpatient (BNVA) | payer OTHER, SELFPAY | PROVIDERS: PCP Internal Medicine; Visit Provider Nurse Practitioner Family | DX: R06.09 Other forms of dyspnea (principal); G47.33 Obstructive sleep apnea (adult) (pediatric); R40.0 Somnolence; R91.8 Other nonspecific abnormal finding of lung field; Z99.89 Dependence on other enabling machines and devices | CPT/HCPCS: 94618 ==

== ENCOUNTER 2022-09-01 09:25 | Outpatient (REF) | payer OTHER, SELFPAY ==
--- NOTE | 2022-09-01 10:30 | PFT_ITS ---
Forced vital capacity 63%, FEV1 67%, FEV1/FVC ratio is 83. [id number] 85%. MVV 90%. Post bronchodilator therapy, there is a significant improvement in FEV1 and [id number]. Total lung capacity 80%. Residual volume 79%. Diffusion capacity 102% CONCLUSION: There is evidence of mild bronchial asthma with good response to bronchodilator therapy. Clinical correlation recommended. MD KIMBERLY Kaur/NOHELIA / [phone]
== END 2022-09-01 09:26 | disposition home or self-care (01) ==
LOC: HO.RESP 09:25
PROVIDERS: PCP Internal Medicine; Visit Provider Nurse Practitioner Family
DX: R06.09 Other forms of dyspnea (principal)
CPT/HCPCS: 94060; 94727; 94729

== ENCOUNTER → 2022-09-01 10:30 | Outpatient (BNV) | payer OTHER, SELFPAY | PROVIDERS: PCP Internal Medicine; Visit Provider Internal Medicine | DX: R06.09 Other forms of dyspnea (principal) | CPT/HCPCS: 94060; 94727; 94729 ==

== ENCOUNTER 2022-09-09 11:03 | Outpatient (AMB) | payer OTHER, SELFPAY ==
--- NOTE | 2022-09-09 11:28 | A.OFFVIS_ITS ---
Intake Intake Visit Reasons: DM Allergies No Known Allergies Allergy (Verified 04/14/22 21:19) HPI Comprehensive Diabetes Asmnt Most Recent Diabetes Results: Cholesterol 231 mg/dL 08/03/22 HDL Cholesterol 34 mg/dL 08/03/22 Triglycerides 279 mg/dL 08/03/22 Creatinine 0.76 mg/dL (0.5-1.4) 08/03/22 Blood Urea Nitrogen 12 mg/dL (9-16) 08/03/22 Sodium 140 mmol/L (135-145) 08/03/22 Potassium 3.7 mmol/L (3.3-5.1) 08/03/22 Chloride 104 mmol/L (96-108) 08/03/22 Carbon Dioxide 24 mmol/L (22-29) 08/03/22 Calcium 9.5 mg/dL (8.4-10.2) 08/03/22 AST 16 U/L (5-31) 08/03/22 ALT 22 U/L (0-31) 08/03/22 Total Protein 6.8 g/dL (6.5-8.0) 04/14/22 Albumin 4.0 g/dL (3.5-5.0) 04/14/22 [facility] Medical History (Updated 08/17/22 @ 13:08 by Genie Mixon NP) Attention deficit disorder (ADD) Chronic cough Chronic low back pain Degenerative disc disease, lumbar Depression Diabetes mellitus with hyperglycemia, without long-term current use of insulin Essential hypertension Hyperlipidemia LDL goal <100 Obesity due to excess calories Obstructive sleep apnea on CPAP Opiate addiction Pulmonary nodules/lesions, multiple Surgical History History of lumbar fusion Hx of foot surgery Hx of hand surgery Hx of mammogram Family History Brother Diabetes mellitus Father Diabetes mellitus Mother Diabetes mellitus Coronary artery disease Son Opiate addiction Daughter Attention deficit disorder (ADD), child, with hyperactivity Other Mental health disorder Substance use disorder Social History Household Members: Spouse Housing: House Alcohol intake: current Alcohol intake frequency: does not drink Patient Tobacco Use Status: Never used Tobacco e-Cigarette/Vaping Use: Never Used Current occupational status: unemployed Cognitive needs: No Hearing needs: No Vision needs: No Assessment & Plan Assessment & Plan (1) Diabetes mellitus with hyperglycemia, without long-term current use of insulin: Code(s): E11.65 - Type 2 diabetes mellitus with hyperglycemia Qualifiers: Diabetes mellitus type: type 2 Qualified Code(s): E11.65 - Type 2 diabetes mellitus with hyperglycemia Plan: Personal Continuous Glucose Monitor: Patients CGM information reviewed Reviewed patient's sensor data: Hypoglycemia: ? 0 % Hyperglycemia:? 95% Time in Range:? 5% Average glucose for the last 2 weeks 293? 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 Recommended to patient she increase Tresiba to 45 units daily, after 3 days if fasting glucose remains above 150 mg/dL increase to 48 units. Patient has follow-up appointment with Dr. Juarez on 09/24/2022 Recommended to patient she keep portions of carbohydrate between 30-45 g per meal Reviewed with patient the importance of controlling glucose levels to prevent diabetes complications such as, nephropathy, retinopathy, neuropathy, dental problems. Reviewed how to interpret trend arrows Reminded patient that to check finger sticks if symptoms do not match sensor reading. Discussed lag time between finger stick and sensor data.? Patient able to insert sensor independently at home without issue.? Patient Instructions: Patient would like to upgrade to Leida 3 sensor, CMN sent to [facility] Follow-up with special education paraeducator in 2 months Coding Level of Care Code Est Pt Level 1 (58802) Diagnoses Diabetes mellitus with hyperglycemia, without long-term current use of insulin E11.65 Diabetes mellitus type: type 2
== END 2022-09-09 11:48 | disposition home or self-care (01) ==
PROVIDERS: PCP Internal Medicine; Visit Provider Registered Nurse Diabetes Educator
DX: E11.65 Type 2 diabetes mellitus with hyperglycemia (principal)
CPT/HCPCS: 99211

== ENCOUNTER → 2022-09-09 11:03 | Outpatient (BNVA) | payer OTHER, SELFPAY | PROVIDERS: PCP Internal Medicine; Visit Provider Registered Nurse Diabetes Educator ==

== ENCOUNTER 2022-09-14 09:54 | Outpatient (REF) | payer OTHER, SELFPAY ==
--- NOTE | ~2022-09-14 | CT_ITS ---
EXAMINATION: CT CHEST WITHOUT CONTRAST CLINICAL INFORMATION: Pulmonary nodule follow-up. History of cough. COMPARISON: CT chest 01/28/2016. TECHNIQUE: Multidetector volumetric CT imaging of the chest was done. Axial MIP volume rendering provided. Sagittal and coronal reformatted images were obtained. This CT examination was performed using dose optimization techniques as appropriate, variously including the following: *Automated exposure control *Adjustment of mA and/or kV according to patient size (this includes techniques or standardized protocols for targeted exams where dose is matched to indication/reason for exam; i.e. extremities or head) *Use of iterative reconstruction technique DLP: 389 mGy-cm FINDINGS: LUNGS: No acute airspace disease. No interstitial lung disease. The central bronchial airways are open. No bronchiectasis. Lung nodules: Right lun. Stable 6 mm nodule inferior aspect of the right middle lobe axial image 271/471 series 9. 2. Stable small focus of pleural thickening along the major fissure inferior right lung image 268/471 series 9 measures about 3 mm. Left lung: No lung nodule. Small lung nodule at the left major fissure at the left lung base seen on CAT scan 11/28/2015 is not evident on today's exam. No new lung nodules. No suspicious lung nodules. MEDIASTINUM: No mediastinal mass or significant lymphadenopathy. The heart size is normal. No pericardial effusion. No vascular calcifications of aorta and great vessels. CORONARY ARTERY CALCIFICATION: Minimal coronary calcification. PLEURA: There is no pleural effusion. No pleural mass or thickening. AXILLA: No lymphadenopathy. UPPER ABDOMEN: Left adrenal lesion measuring 1.3 cm with density measurement 10 Hounsfield units consistent with an adrenal adenoma. This is unchanged since the CAT scan 11/28/2015. No further follow-up imaging recommended. The right adrenal gland is normal. No abnormality of the visualized portions of liver, spleen, or the pancreas. OSSEOUS STRUCTURES: No acute osteoporotic. Multilevel degenerative spondylosis spine. CT/CT chest wo IV con IMPRESSION: 1. Stable 6 mm nodule right middle lobe. This is unchanged since CAT scan 2015. As per Fleischner guidelines no further follow-up imaging is recommended. No new lung nodules. 2. No acute airspace disease. 3. No acute abnormality of the chest. Fleischner guidelines were followed.
== END 2022-09-14 09:55 | disposition home or self-care (01) ==
LOC: HO.CT 09:54
PROVIDERS: PCP Internal Medicine; Visit Provider Internal Medicine
DX: R91.8 Other nonspecific abnormal finding of lung field (principal); R05.3 Chronic cough
CPT/HCPCS: 71250

== ENCOUNTER 2022-09-21 10:02 | Outpatient (AMB) | payer OTHER, SELFPAY ==
[2022-09-21 10:06] VITALS: BP 128/76; PULSE 86; O2SAT 95; BMI 43.7
--- NOTE | 2022-09-21 10:06 | MHC.OFFVIS ---
Intake Vital Signs 09/21/22 10:06 Height 5 ft 5 in Weight 262 lb 5.601 oz BMI 43.7 BP 128/76 Blood Pressure Location Lt brachial Position Sitting Pulse 86 Pulse Source Pulse Oximeter Pulse Oximetry (%) 95 Oxygen Delivery Method Room Air Intake Visit Reasons: Cough/Pulm nodules Director Of Religious Life Required: No Supervisor International Reservations: Supervisor International Reservations offered & declined Accompanied by: Self / Same As Patient Allergies No Known Allergies Allergy (Verified 09/21/22 10:14) Medication List - Last Reconciled 09/21/22 by Tanya Ritchie LPN albuterol sulfate 90 mcg/actuation 2 puffs inhalation Q4-6H PRN atorvastatin 80 mg (2 x 40 mg) PO DAILY benzonatate 200 mg PO TID PRN blood sugar diagnostic (Accu-Chek Guide test strips) As directed 3 times a day blood-glucose meter (Accu-Chek Guide Glucose Meter) As directed celecoxib 200 mg PO DAILY PRN clonazepam 0.5 mg PO TID clonazepam 1 mg PO TID PRN dextroamphetamine-amphetamine 20 mg 1 tab PO BID empagliflozin (Jardiance) 25 mg PO QAM flash glucose sensor (FreeStyle Leida 2 Sensor kit) As directed every 2 weeks glucose (Dex4 Glucose) 12 grams (3 x 4 gram) PO Q15M PRN hydrochlorothiazide 25 mg PO QAM insulin aspart U-100 (Novolog FlexPen U-100 Insulin aspart) 5 - 7 units (0.05 - 0.07 mL) subcut TID 90 days insulin degludec (Tresiba FlexTouch U-200 insulin) 50 units (0.25 mL) subcut BEDTIME 84 days levothyroxine 25 mcg PO DAILY lisinopril 2.5 mg (1/2 x 5 mg) PO DAILY metformin 500 mg PO BIDWMEAL 30 days pen needle, diabetic (BD Cande 2nd Gen Pen Needle) As directed 4 times daily sertraline mg PO tirzepatide (Mounjaro) 7.5 mg (0.5 mL) subcut QWEEK HPI Cough/Pulm nodules HPI Details Dimple is pleasant 56 year old female, never smoker, with underlying asthma, CHINMAY previously CPAP, pulmonary nodules and morbid obesity. She continues to report dyspnea that limits her activity as well as a dry cough and wheezing. She has her sleep study scheduled and is looking forward to having a CPAP machine again, as she reports significant daytime fatigue. Today she presents to review PFT and chest CT results. [facility] Medical History (Updated 09/22/22 @ 09:02 by Genie Mixon NP) Attention deficit disorder (ADD) Chronic cough Chronic low back pain Degenerative disc disease, lumbar Depression Diabetes mellitus with hyperglycemia, without long-term current use of insulin Essential hypertension Hyperlipidemia LDL goal <100 Obesity due to excess calories Obstructive sleep apnea on CPAP Opiate addiction Pulmonary nodules/lesions, multiple Surgical History History of lumbar fusion Hx of foot surgery Hx of hand surgery Hx of mammogram Family History Brother Diabetes mellitus Father Diabetes mellitus Mother Diabetes mellitus Coronary artery disease Son Opiate addiction Daughter Attention deficit disorder (ADD), child, with hyperactivity Other Mental health disorder Substance use disorder Social History Household Members: Spouse Housing: House Alcohol intake: current Alcohol intake frequency: does not drink Patient Tobacco Use Status: Never used Tobacco e-Cigarette/Vaping Use: Never Used Current occupational status: unemployed Cognitive needs: No Hearing needs: No Vision needs: No Review of Systems Const Denies chills, Denies excessive sweating, Denies fever(s), Denies headache(s) and Denies night sweats Eyes Denies dry eyes, Denies irritation and Denies itchy eyes ENT Reports Normal hearing present, Denies headache(s), Denies nasal congestion, Denies nasal discharge, Denies post nasal drip and Denies sore throat Card Denies chest pain, Denies chest pain at rest, Denies chest pain with activity, Denies leg edema and Denies orthopnea Resp Denies chest congestion, Denies excessive phlegm production, Denies pain on inspiration, Denies pain with cough and Denies stridor Neuro Reports Normal hearing present and Denies headache(s) Endo Denies excessive sweating Rufino/Lymph Denies lymphadenopathy Aller/Immun Denies itchy eyes and Denies seasonal rhinorrhea Physical Exam Vital Signs: Last Vital Signs Pulse 86 09/21/22 10:06 BP 128/76 09/21/22 10:06 Pulse Ox 95 09/21/22 10:06 Oxygen Delivery Method Room Air 09/21/22 10:06 BMI result Body Mass Index 43.7 Const General: cooperative, healthy appearing, comfortable, no acute distress, well developed and alert Nutritional Appearance: obese Orientation/consciousness: patient oriented x3 Limitations: no limitations HEENT Head: Yes normal to inspection, Yes normocephalic and Yes atraumatic Ears: hearing grossly normal bilaterally and external ears normal Eyes General: appearance normal, both eyes and all related structures Eyelids: Yes eyelids normal Sclerae: sclerae normal EOM: EOMs intact bilaterally Neck Neck: Yes normal visual inspection and Yes no lymphadenopathy Lymphatic: no lymphadenopathy noted Chest Chest palpation & inspection: normal inspection of the chest Resp Effort & Inspection: normal respiratory effort, able to speak in complete sentences, no audible wheezes, no stridor, not tachypneic, no tripod positioning and no use of accessory muscles Auscultation: clear to auscultation bilaterally Cardio Jugular venous distension: no JVD Rate: regular rate Rhythm: regular rhythm Skin Other: warm, dry General skin exam: no rashes or lesions noted Neuro General: patient oriented x3 Cranial nerves: Yes Normal hearing present Cognition (Neuro): normal cognition Gait exam (Neuro): Normal gait present Extrem General: Yes normal to inspection, Yes capillary refill normal, Yes no clubbing, cyanosis or edema and Yes no pedal edema Psych Appearance: grossly normal and well kempt Speech and movement: Normal speech and movement present and Clear speech present Affect: normal affect Attitude: cooperative Thought process: Normal thought process present Thought content: Normal thought content present Insight: Good insight present (Psych) Judgement: Good judgement present (Psych) Results Reviewed Results Reviewed: [address] [address] [address] Scan Report Signed Patient: Dimple Cordoba MR#: [id number] : 1965 Acct:[id number] Age/Sex: 57 / F ADM Date: 09/14/22 Loc: HO.CT Attending Dr: Lucrecia Fitch MD Ordering Physician: Genie Mixon NP Date of Service: 09/14/22 Procedure(s): CT chest wo IV con Accession Number(s): [id number] cc: Stucenski,Genie MEDICAL OFFICE CLERK~ EXAMINATION: CT CHEST WITHOUT CONTRAST CLINICAL INFORMATION: Pulmonary nodule follow-up. History of cough. COMPARISON: CT chest 01/28/2016. TECHNIQUE: Multidetector volumetric CT imaging of the chest was done. Axial MIP volume rendering provided. Sagittal and coronal reformatted images were obtained.? This CT examination was performed using dose optimization techniques as appropriate, variously including the following: *Automated exposure control *Adjustment of mA and/or kV according to patient size (this includes techniques or standardized protocols for targeted exams where dose is matched to indication/reason for exam; i.e. extremities or head) *Use of iterative reconstruction technique DLP: 389 mGy-cm FINDINGS: LUNGS: No acute airspace disease. No interstitial lung disease. The central bronchial airways are open. No bronchiectasis. Lung nodules: Right lun. Stable 6 mm nodule inferior aspect of the right middle lobe axial image 271/471 series 9. 2. Stable small focus of pleural thickening along the major fissure inferior right lung image 268/471 series 9 measures about 3 mm. Left lung: No lung nodule. Small lung nodule at the left major fissure at the left lung base seen on CAT scan 11/28/2015 is not evident on today's exam. No new lung nodules. No suspicious lung nodules. MEDIASTINUM: No mediastinal mass or significant lymphadenopathy. The heart size is normal. No pericardial effusion. No vascular calcifications of aorta and great vessels.? CORONARY ARTERY CALCIFICATION: Minimal coronary calcification. PLEURA: There is no pleural effusion. No pleural mass or thickening.? AXILLA: No lymphadenopathy.? UPPER ABDOMEN: Left adrenal lesion measuring 1.3 cm with density measurement 10 Hounsfield units consistent with an adrenal adenoma. This is unchanged since the CAT scan 11/28/2015. No further follow-up imaging recommended. The right adrenal gland is normal. No abnormality of the visualized portions of liver, spleen, or the pancreas. OSSEOUS STRUCTURES: No acute osteoporotic. Multilevel degenerative spondylosis spine.? CT/CT chest wo IV con IMPRESSION: 1.? Stable 6 mm nodule right middle lobe. This is unchanged since CAT scan 2016. As per Fleischner guidelines no further follow-up imaging is recommended. No new lung nodules. 2.? No acute airspace disease. 3.? No acute abnormality of the chest. ? Fleischner guidelines were followed. Assessment & Plan Assessment & Plan (1) Asthma: Code(s): J45.909 - Unspecified asthma, uncomplicated (2) Dyspnea on exertion: Code(s): R06.09 - Other forms of dyspnea (3) Obstructive sleep apnea on CPAP: Code(s): G47.33 - Obstructive sleep apnea (adult) (pediatric); Z99.89 - Dependence on other enabling machines and devices (4) Daytime somnolence: Code(s): R40.0 - Somnolence (5) Pulmonary nodules/lesions, multiple: Code(s): R91.8 - Other nonspecific abnormal finding of lung field Plan Reviewed PFT results with Dimple, which revealed evidence of mild bronchial asthma with good response to bronchodilator therapy. Will trial Breo and continue to use albuterol PRN. Inhaler technique and oral hygiene reviewed. Briefly discussed the role weight loss would play in improving dyspnea as well as slowly increasing activity as tolerated. Reviewed chest CT which revealed a stable 6 mm nodule of the RML, unchanged since 2016. Full report above. She has a sleep study scheduled in a few weeks, will follow up after to review results or sooner if needed. All questions were answered and patient in agreement of plan. Medications: New fluticasone furoate-vilanterol 100-25 mcg/dose (Breo Ellipta) 1 inh inhalation DAILY 60 ea 3RF Coding Level of Care Code Est Pt Level 4 (52056) Diagnoses Asthma J45.909 Dyspnea on exertion R06.09 Obstructive sleep apnea on CPAP G47.33; Z99.89 Daytime somnolence R40.0 Pulmonary nodules/lesions, multiple R91.8
== END 2022-09-21 10:43 | disposition home or self-care (01) ==
PROVIDERS: PCP Internal Medicine; Visit Provider Nurse Practitioner Family
DX: J45.909 Unspecified asthma, uncomplicated (principal); R06.09 Other forms of dyspnea; G47.33 Obstructive sleep apnea (adult) (pediatric); Z99.89 Dependence on other enabling machines and devices; R40.0 Somnolence; R91.8 Other nonspecific abnormal finding of lung field
CPT/HCPCS: 99214

== ENCOUNTER → 2022-09-21 10:02 | Outpatient (BNVA) | payer OTHER, SELFPAY | PROVIDERS: PCP Internal Medicine; Visit Provider Nurse Practitioner Family ==

== ENCOUNTER → 2022-10-04 16:03 | Outpatient (REF) | payer OTHER, SELFPAY | LOC: HO.SL 16:03 | PROVIDERS: PCP Internal Medicine; Visit Provider Nurse Practitioner Family | DX: G47.33 Obstructive sleep apnea (adult) (pediatric) (principal); R40.0 Somnolence | CPT/HCPCS: 95806 ==

== ENCOUNTER → 2022-10-04 16:09 | Outpatient (BNV) | payer OTHER, SELFPAY | PROVIDERS: PCP Internal Medicine; Visit Provider Internal Medicine | DX: G47.33 Obstructive sleep apnea (adult) (pediatric) (principal) | CPT/HCPCS: 95806 ==

== ENCOUNTER 2022-10-08 10:31 | Outpatient (AMB) | payer OTHER, SELFPAY ==
--- NOTE | 2022-10-08 10:32 | MHC.OFFVIS ---
Intake Vital Signs 10/08/22 10:33 Height 5 ft 5 in Weight 260 lb 2.327 oz BMI 43.3 BP 146/74 H Blood Pressure Location Rt brachial Position Sitting Pulse 104 H Pulse Source Pulse Oximeter Pulse Oximetry (%) 100 Oxygen Delivery Method Room Air Intake Visit Reasons: Cough/Pulm nodules Surg Tech Required: No Food Safety Manager: Food Safety Manager offered & declined Accompanied by: Self / Same As Patient Allergies No Known Allergies Allergy (Verified 10/08/22 10:41) Medication List - Last Reconciled 10/08/22 by Tanya Ritchie LPN albuterol sulfate 90 mcg/actuation 2 puffs inhalation Q4-6H PRN atorvastatin 80 mg (2 x 40 mg) PO DAILY benzonatate 200 mg PO TID PRN blood sugar diagnostic (Accu-Chek Guide test strips) As directed 3 times a day blood-glucose meter (Accu-Chek Guide Glucose Meter) As directed celecoxib 200 mg PO DAILY PRN clonazepam 0.5 mg PO TID clonazepam 1 mg PO TID PRN dextroamphetamine-amphetamine 20 mg 1 tab PO BID empagliflozin (Jardiance) 25 mg PO QAM flash glucose sensor (FreeStyle Leida 2 Sensor kit) As directed every 2 weeks fluticasone furoate-vilanterol 100-25 mcg/dose (Breo Ellipta) 1 inh inhalation DAILY glucose (Dex4 Glucose) 12 grams (3 x 4 gram) PO Q15M PRN hydrochlorothiazide 25 mg PO QAM insulin aspart U-100 (Novolog FlexPen U-100 Insulin aspart) 5 - 7 units (0.05 - 0.07 mL) subcut TID 90 days insulin degludec (Tresiba FlexTouch U-200 insulin) 50 units (0.25 mL) subcut BEDTIME 84 days levothyroxine 25 mcg PO DAILY lisinopril 2.5 mg (1/2 x 5 mg) PO DAILY metformin 500 mg PO BIDWMEAL 30 days pen needle, diabetic (BD Cande 2nd Gen Pen Needle) As directed 4 times daily sertraline mg PO tirzepatide (Mounjaro) 7.5 mg (0.5 mL) subcut QWEEK HPI Cough/Pulm nodules HPI Details Dimple is pleasant 56 year old female, never smoker, with underlying asthma, CHINMAY previously CPAP, pulmonary nodules and morbid obesity. She continues to report dyspnea that limits her activity as well as a dry cough and wheezing. She was prescribed breo but unfortunately had coverage issues and was unable to obtain. Today she presents to review sleep study results. [facility] Medical History (Updated 10/08/22 @ 14:59 by Genie Mixon NP) Attention deficit disorder (ADD) Chronic cough Chronic low back pain Degenerative disc disease, lumbar Depression Diabetes mellitus with hyperglycemia, without long-term current use of insulin Essential hypertension Hyperlipidemia LDL goal <100 Obesity due to excess calories Obstructive sleep apnea on CPAP Opiate addiction Pulmonary nodules/lesions, multiple Surgical History History of lumbar fusion Hx of foot surgery Hx of hand surgery Hx of mammogram Family History Brother Diabetes mellitus Father Diabetes mellitus Mother Diabetes mellitus Coronary artery disease Son Opiate addiction Daughter Attention deficit disorder (ADD), child, with hyperactivity Other Mental health disorder Substance use disorder Social History Household Members: Spouse Housing: House Alcohol intake: current Alcohol intake frequency: does not drink Patient Tobacco Use Status: Never used Tobacco e-Cigarette/Vaping Use: Never Used Current occupational status: unemployed Cognitive needs: No Hearing needs: No Vision needs: No Review of Systems Const Denies chills, Denies excessive sweating, Denies fever(s), Denies headache(s) and Denies night sweats Eyes Denies irritation and Denies itchy eyes ENT Reports Normal hearing present, Denies headache(s), Denies nasal congestion, Denies nasal discharge, Denies post nasal drip and Denies sore throat Card Denies chest pain, Denies chest pain at rest, Denies chest pain with activity, Denies leg edema and Denies orthopnea Resp Denies chest congestion, Denies excessive phlegm production, Denies pain on inspiration, Denies pain with cough and Denies stridor Neuro Reports Normal hearing present and Denies headache(s) Endo Denies excessive sweating Rufino/Lymph Denies lymphadenopathy Aller/Immun Denies itchy eyes and Denies seasonal rhinorrhea Physical Exam Vital Signs: Last Vital Signs Pulse 104 H 10/08/22 10:33 BP 146/74 H 10/08/22 10:33 Pulse Ox 100 10/08/22 10:33 Oxygen Delivery Method Room Air 10/08/22 10:33 BMI result Body Mass Index 43.3 Const General: cooperative, healthy appearing, comfortable, no acute distress, well developed and alert Nutritional Appearance: obese Orientation/consciousness: patient oriented x3 Limitations: no limitations HEENT Head: Yes normal to inspection, Yes normocephalic and Yes atraumatic Ears: hearing grossly normal bilaterally and external ears normal Eyes General: appearance normal, both eyes and all related structures Eyelids: Yes eyelids normal Sclerae: sclerae normal EOM: EOMs intact bilaterally Neck Neck: Yes normal visual inspection and Yes no lymphadenopathy Lymphatic: no lymphadenopathy noted Chest Chest palpation & inspection: normal inspection of the chest Resp Effort & Inspection: normal respiratory effort, able to speak in complete sentences, no audible wheezes, no stridor, not tachypneic, no tripod positioning and no use of accessory muscles Auscultation: clear to auscultation bilaterally Cardio Jugular venous distension: no JVD Rate: regular rate Rhythm: regular rhythm Skin Other: warm, dry General skin exam: no rashes or lesions noted Neuro General: patient oriented x3 Cranial nerves: Yes Normal hearing present Cognition (Neuro): normal cognition Gait exam (Neuro): Normal gait present Extrem General: Yes normal to inspection, Yes capillary refill normal, Yes no clubbing, cyanosis or edema and Yes no pedal edema Psych Appearance: grossly normal and well kempt Speech and movement: Normal speech and movement present and Clear speech present Affect: normal affect Attitude: cooperative Thought process: Normal thought process present Thought content: Normal thought content present Insight: Good insight present (Psych) Judgement: Good judgement present (Psych) Results Reviewed Results Reviewed: Assessment & Plan Assessment & Plan (1) Severe obstructive sleep apnea: Code(s): G47.33 - Obstructive sleep apnea (adult) (pediatric) (2) Asthma: Code(s): J45.909 - Unspecified asthma, uncomplicated (3) Dyspnea on exertion: Code(s): R06.09 - Other forms of dyspnea (4) Pulmonary nodules/lesions, multiple: Code(s): R91.8 - Other nonspecific abnormal finding of lung field Plan Reviewed sleep study results with patient which revealed an AHI of 52 . Since patient is quite symptomatic, will start CPAP therapy. Will send in prescription for APAP mode and pressure settings of 6-20 cm with close monitoring for compliance and benefits. Sleep hygiene education reviewed. She is aware if there are any issues with the mask or CPAP machine, she will call the office. Will send in Advair for patient to trial, as Breo was not covered. She is aware to call if she is unable to obtain medication. All questions were answered and patient is in agreement of plan. Will follow up in 8 weeks. Medications: New fluticasone propion-salmeterol 115-21 mcg/actuation (Advair HFA) 2 puffs inhalation Q12H 12 grams 4RF Discontinued fluticasone furoate-vilanterol 100-25 mcg/dose (Breo Ellipta) Discontinued Reason: Insurance Denied 1 inh inhalation DAILY 60 ea 3RF Coding Level of Care Code Est Pt Level 4 (26207) Diagnoses Severe obstructive sleep apnea G47.33 Asthma J45.909 Dyspnea on exertion R06.09 Pulmonary nodules/lesions, multiple R91.8
[2022-10-08 10:33] VITALS: BP 146/74; PULSE 104; O2SAT 100; BMI 43.3
== END 2022-10-08 11:22 | disposition home or self-care (01) ==
PROVIDERS: PCP Internal Medicine; Visit Provider Nurse Practitioner Family
DX: G47.33 Obstructive sleep apnea (adult) (pediatric) (principal); J45.909 Unspecified asthma, uncomplicated; R06.09 Other forms of dyspnea; R91.8 Other nonspecific abnormal finding of lung field
CPT/HCPCS: 99214

== ENCOUNTER → 2022-10-08 10:31 | Outpatient (BNVA) | payer OTHER, SELFPAY | PROVIDERS: PCP Internal Medicine; Visit Provider Nurse Practitioner Family ==

== ENCOUNTER 2023-03-16 07:58 | Outpatient (REF) | payer OTHER, SELFPAY ==
[2023-03-16 12:33] LABS: Creatinine Urine 65.58 mg/dL; Microalbum/Creatinine Ratio Ur 181.4 ug/mg cr (<30)
[2023-03-16 13:08] LABS: Anion Gap 15 (12-20); Blood Urea Nitrogen 10 mg/dL (9-16); Calcium 9.1 mg/dL (8.4-10.2); Carbon Dioxide 24 mmol/L (22-29); Chloride 101 mmol/L (96-108); Cholesterol 141 mg/dL (<200); Estimated Glomerular Filt Rate > 60; HDL Cholesterol 18 mg/dL (>40); Potassium 3.6 mmol/L (3.3-5.1); Sodium 136 mmol/L (135-145); Triglycerides 466 mg/dL (<150)
[2023-03-16 13:10] LABS: Free T4 (Free Thyroxine) 1.17 ng/dL (0.71-1.85); Thyroid Stimulating Hormone 3.23 uIU/mL (0.32-4.0)
[2023-03-16 13:17] LABS: Glucose Random 401 mg/dL (60-115)
== END 2023-03-16 07:59 | disposition home or self-care (01) ==
LOC: HO.HMGCLDS 07:58
PROVIDERS: PCP Internal Medicine; Visit Provider Internal Medicine Endocrinology, Diabetes & Metabolism
DX: E11.65 Type 2 diabetes mellitus with hyperglycemia (principal); E78.5 Hyperlipidemia, unspecified; E03.9 Hypothyroidism, unspecified
CPT/HCPCS: 36415; 80048; 80061; 82043; 82570; 82947; 83036; 84439; 84443

== ENCOUNTER 2023-03-16 11:30 | Outpatient (AMB) | payer OTHER, SELFPAY ==
--- NOTE | 2023-03-16 11:33 | MHC.OFFVIS ---
Intake Vital Signs 03/16/23 11:36 Height 5 ft 5 in Weight 253 lb 8.505 oz BMI 42.2 BP 114/60 Blood Pressure Location Lt brachial Position Sitting Pulse 82 Pulse Source Pulse Oximeter Intake Visit Reasons: DM-lvm Intake Note: Patient presents today to follow up on Type 2 Diabetes Mellitus. Last Diabetic Eye exam: 2021 Last Podiatry Visit: 10/2022 Random Glucose: 596 mg/dl HgA1C:>14% Project Associate Required: No Allergies No Known Allergies Allergy (Verified 10/08/22 10:41) HPI HPI Comments History of Present Illness Details Patient is 57 year old female with DM type 2 diagnosed in November 2019 , who presents for management of diabetes. Patient was last seen 07/31/21 by Nayeli Lujan NP . She was started on 25 mcg of levothyroxine in May 2020. Past medical history: DM2, HTN, HLD Micro and macrovascular complications: no complications Diabetes medications: Jardiance 25 mg, Trulicity 3mg per week metformin 1,000 mg BID. Tresiba 50 units Novolog 5-7 units premeals Continuous glucose monitoring: In the past 2 weeks C GM is active 47% with an average blood glucose of 393. . Blood glucose in target range of 70-180, 0%. 100% above target range. % very hyerglycemic Patient is hyperglycemic throughout the day. Hypoglycemia: denies r Exercise: recently started walking with neighbor due to back issues. 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 Client Relations Specialist: goes regularly Last ophthalmology evaluation: . Other specialists: orthopedist Laboratory Tests 05/20/20 05/20/21 05/20/21 Unknown 14:05 14:05 Creatinine 0.94 Estimated GFR > 60 Hemoglobin A1c % 8.5 LDL Cholesterol Di rect TSH 1.16 Free T4 1.15 Thyroglobulin Anti body <1 Thyroid Peroxidase Ab <1 05/20/21 14:05 Creatinine Estimated GFR Hemoglobin A1c % LDL Cholesterol Di rect 124 H TSH Free T4 Thyroglobulin Anti body Thyroid Peroxidase Ab PFSH Medical History (Updated 10/08/22 @ 14:59 by Genie Mixon NP) Pulmonary nodules/lesions, multiple Chronic cough Chronic low back pain Obesity due to excess calories Hyperlipidemia LDL goal <100 Diabetes mellitus with hyperglycemia, without long-term current use of insulin Opiate addiction Degenerative disc disease, lumbar Obstructive sleep apnea on CPAP Attention deficit disorder (ADD) Depression Essential hypertension Surgical History Hx of hand surgery Hx of foot surgery Hx of mammogram History of lumbar fusion Family History Brother Diabetes mellitus Father Diabetes mellitus Mother Diabetes mellitus Coronary artery disease Son Opiate addiction Daughter Attention deficit disorder (ADD), child, with hyperactivity Other Mental health disorder Substance use disorder Social History Household Members: Spouse Housing: House Alcohol intake: current Alcohol intake frequency: does not drink Patient Tobacco Use Status: Never used Tobacco e-Cigarette/Vaping Use: Never Used Current occupational status: unemployed Cognitive needs: No Hearing needs: No Vision needs: No Physical Exam Absence of Cushingoid features. Absence of acromegalic features. Neck exam reveals nl size thyroid about 15 gms. No thyroid nodules palpable. No carotid bruits present. Lungs CTA. Heart S1 S2, Reg R/R. No M/R/ G. Skin exam reveals absence of vitiligo or acanthosis nigricans. Abdominal exam reveals Soft NT/ND with NA BS. No organomegaly present. Neck Other: . Extrem Other: Visual exam of foot performed. No ulcerations or open lesions. No onchomycosis, no callouses.Pulses 2 + distally Sensation intact to monofilament exam. Vibratory sensation sensed is Decreased with 128 Hz tuning fork Results AMB Hemoglobin A1c AMB Hemoglobin A1c > 14 % Last Edit by Ksenia Reyes on 03/16/23 12:30 Assessment & Plan Assessment & Plan (1) Diabetes mellitus with hyperglycemia, without long-term current use of insulin: Code(s): E11.65 - Type 2 diabetes mellitus with hyperglycemia Qualifiers: Diabetes mellitus type: type 2 Qualified Code(s): E11.65 - Type 2 diabetes mellitus with hyperglycemia Plan: This 57-year-old white female with a history of type 2 diabetes being treated with metformin, Jardiance and Trulicity as well as basal insulin with poor glycemic control and no known microvascular or macrovascular complications. Plan is to emergency room via ambulance considering [facility]> 500. 10 units of Humalog was administered to the patient. Once patient is stabilized have the patient scan more frequently with the Leida. Have her follow up with the wellness educator in the future and myself after (2) Essential hypertension: Code(s): I10 - Essential (primary) hypertension Plan: Not addressed during this visit (3) Subclinical hypothyroidism: Code(s): E03.9 - Hypothyroidism, unspecified Plan: Clinically and biochemically euthyroid on 25 mcg levothyroxine. Will continue current management Orders: Orders AMB Hemoglobin A1c Today E11.65 - Type 2 diabetes mellitus with hyperglycemia Medications: New blood-glucose sensor (Cloubrain Leida 3 Sensor device) As directed change every 14 days 2 ea 5RF Refilled insulin aspart U-100 (Novolog FlexPen U-100 Insulin aspart) 5 - 7 units (0.05 - 0.07 mL) subcut TID 90 days 15 mL 2RF Coding Level of Care Code Est Pt Level 4 (22004) Diagnoses Type 2 diabetes mellitus with hyperglycemia, without long-term current use of insulin E11.65 Diabetes mellitus type: type 2 Essential hypertension I10 Subclinical hypothyroidism E03.9
[2023-03-16 11:36] VITALS: BP 114/60; PULSE 82; BMI 42.2
[2023-03-16 11:51] LABS: Glucose, Whole Blood 596 mg/dL (60-115)
== END 2023-03-16 13:24 | disposition home or self-care (01) ==
PROVIDERS: PCP Internal Medicine; Visit Provider Internal Medicine Endocrinology, Diabetes & Metabolism
DX: E11.65 Type 2 diabetes mellitus with hyperglycemia (principal); I10 Essential (primary) hypertension; E03.9 Hypothyroidism, unspecified
CPT/HCPCS: 99214

== ENCOUNTER 2023-05-04 09:04 | Outpatient (AMB) | payer OTHER, SELFPAY ==
--- NOTE | 2023-05-04 09:33 | A.OFFVIS_ITS ---
Intake Intake Visit Reasons: DM-lvm Graphic Design Specialist Required: No Accompanied by: Self / Same As Patient Allergies No Known Allergies Allergy (Verified 10/08/22 10:41) HPI Comprehensive Diabetes Asmnt Most Recent Diabetes Results: Microalb/Creat Ratio 181.4 ug/mg cr (<30) H 03/16/23 Cholesterol 141 mg/dL (<200) 03/16/23 HDL Cholesterol 18 mg/dL (>40) L 03/16/23 Triglycerides 466 mg/dL (<150) H 03/16/23 Creatinine 0.95 mg/dL (0.5-1.4) 03/16/23 Blood Urea Nitrogen 10 mg/dL (9-16) 03/16/23 Sodium 136 mmol/L (135-145) 03/16/23 Potassium 3.6 mmol/L (3.3-5.1) 03/16/23 Chloride 101 mmol/L (96-108) 03/16/23 Carbon Dioxide 24 mmol/L (22-29) 03/16/23 Calcium 9.1 mg/dL (8.4-10.2) 03/16/23 AST 16 U/L (5-31) 08/03/22 ALT 22 U/L (0-31) 08/03/22 Total Protein 6.8 g/dL (6.5-8.0) 04/14/22 Albumin 4.0 g/dL (3.5-5.0) 04/14/22 [facility] Medical History (Updated 10/08/22 @ 14:59 by Genie Mixon NP) Pulmonary nodules/lesions, multiple Chronic cough Chronic low back pain Obesity due to excess calories Hyperlipidemia LDL goal <100 Diabetes mellitus with hyperglycemia, without long-term current use of insulin Opiate addiction Degenerative disc disease, lumbar Obstructive sleep apnea on CPAP Attention deficit disorder (ADD) Depression Essential hypertension Surgical History Hx of hand surgery Hx of foot surgery Hx of mammogram History of lumbar fusion Family History Brother Diabetes mellitus Father Diabetes mellitus Mother Diabetes mellitus Coronary artery disease Son Opiate addiction Daughter Attention deficit disorder (ADD), child, with hyperactivity Other Mental health disorder Substance use disorder Social History Household Members: Spouse Housing: House Alcohol intake: current Alcohol intake frequency: does not drink Patient Tobacco Use Status: Never used Tobacco e-Cigarette/Vaping Use: Never Used Current occupational status: unemployed Cognitive needs: No Hearing needs: No Vision needs: No Assessment & Plan Assessment & Plan (1) Diabetes mellitus with hyperglycemia, without long-term current use of insulin: Code(s): E11.65 - Type 2 diabetes mellitus with hyperglycemia Qualifiers: Diabetes mellitus type: type 2 Qualified Code(s): E11.65 - Type 2 diabetes mellitus with hyperglycemia Plan: Learning objectives: The patient was provided with verbal and written education on the following topi cs as outlined below. The patient met all learning objectives and was able to verbalize understanding and provide teach back of education topics discussed . The patient was provided with the opportunity to ask questions and all questions were answered. Patient Assessment Assess patient education level/literacy/barriers Patient questions/concerns, patient has not restarted Trulicity or Tresiba, patient's last A1c in March 2023 was 14%. Instructed patient she should contact insurance companies to see if they cover a different basal insulin with a lower co-pay than the Tresiba so she can restart medications. What is Diabetes? Pathophysiology How the body produces and uses insulin Identify type of DM Risk factors Signs of Diabetes Brief overview of Diabetes Management Monitoring blood sugar Following a meal plan Regular exercise Maintaining a healthy weight Taking medication as needed Members of the care team (PCP, RN, MA, RD, CDE, healthcare consultant) Blood glucose monitoring When/how often to test Target blood sugar ranges Introduction to Nutrition Importance of healthy diet in managing DM Diet is personalized to individual preference Review patient?s regular diet/food preferences Who prepares meals/does food shopping/ Dining out?/ Barriers? How diet effects glucose Eating 3 balanced meals a day with small, healthy snacks between meals Review food groups Carbohydrates: What is a carbohydrate/Which food/food groups are considered carbohydrates Effect of carbohydrates on blood glucose Portion sizes Reading food labels Basic carb counting (if applicable per nursing assessment) Plate method Meal planning Recommendations: Follow plate method, consistent carbs and read nutritional labels. Smart Goal: Patient will reduce carbohydrate portion at meals to 30-45 g per meal Educational Materials: The patient was provided with the following written educational materials: Planning Healthy Meals Handout Patient Response to instructions: Comprehension of Instructions: Fair Readiness to make changes: Contemplation How confident they feel about making changes: Positive Patient Instructions: Include regular daily activity. ADA recommends 30 minutes of exercise 5 days a week. Weight loss talk to PCP or Analytics Leader before starting new plan. Test blood sugar as directed; Fasting and 2hpp largest meal. Watch trends in results. Utilize results and to assess how food, physical activity and medications affect blood sugar results. Bring glucometer or CGM to next visit. Be knowledgeable about diabetes medication, its action, side effects, efficacy, toxicity, prescribed dosage, appropriate timing and frequency of administration, effect of missed and delayed doses and instructions for storage, travel and safety. Problem solving techniques to monitor hypo/hyperglycemia episodes and treatments. Reduce risk reduction behaviors, smoking cessation, regular eye, foot and dental examinations. Follow up with diabetes education nurse in 1 month Coding Level of Care Code Est Pt Level 1 (11460) Diagnoses Type 2 diabetes mellitus with hyperglycemia, without long-term current use of insulin E11.65 Diabetes mellitus type: type 2
== END 2023-05-04 09:40 | disposition home or self-care (01) ==
PROVIDERS: PCP Internal Medicine; Visit Provider Registered Nurse Diabetes Educator
DX: E11.65 Type 2 diabetes mellitus with hyperglycemia (principal)

== ENCOUNTER → 2023-05-04 09:04 | Outpatient (BNVA) | payer OTHER, SELFPAY | PROVIDERS: PCP Internal Medicine; Visit Provider Registered Nurse Diabetes Educator | DX: E11.65 Type 2 diabetes mellitus with hyperglycemia (principal) | CPT/HCPCS: 99211 ==

== ENCOUNTER 2023-07-19 07:59 | Outpatient (AMB) | payer OTHER, SELFPAY ==
[2023-07-19 08:01] VITALS: BP 144/88; PULSE 94; BMI 40.3
--- NOTE | 2023-07-19 08:01 | A.OFFVIS_ITS ---
Vital Signs 07/19/23 08:01 Height 5 ft 5 in Weight 242 lb 4.608 oz BMI 40.3 BP 144/88 H Blood Pressure Location Lt brachial Position Sitting Pulse 94 Pulse Source Pulse Oximeter Intake Visit Reasons: DM/LVM Intake Note: Patient present today to follow up on Type 2 Diabetes Mellitus. Last Diabetic Eye exam: 05/2023 Last Podiatry Visit: 05/2023 Random Glucose: 277 mg/dl HgA1C: 13.7% [place]liola Mechanic Required: No Accompanied by: Self / Same As Patient Allergies No Known Allergies Allergy (Verified 07/19/23 08:07) Medication List - Last Reconciled 07/19/23 by Chintan Juarez MD atorvastatin 80 mg (2 x 40 mg) PO DAILY benzonatate 200 mg PO TID PRN blood sugar diagnostic (Accu-Chek Guide test strips) As directed 3 times a day blood-glucose meter (Accu-Chek Guide Glucose Meter) As directed blood-glucose sensor (Amnisyle Leida 3 Sensor device) As directed change every 14 days dextroamphetamine-amphetamine 20 mg 1 tab PO BID dulaglutide (Trulicity) 3 mg (0.5 mL) subcut QWEEK empagliflozin (Jardiance) 25 mg PO QAM glucose (Dex4 Glucose) 12 grams (3 x 4 gram) PO Q15M PRN insulin aspart U-100 (Novolog FlexPen U-100 Insulin aspart) 5 - 7 units (0.05 - 0.07 mL) subcut TID 90 days insulin degludec (Tresiba FlexTouch U-200 insulin) 50 units (0.25 mL) subcut BEDTIME 84 days levothyroxine 25 mcg PO DAILY lisinopril 2.5 mg (1/2 x 5 mg) PO DAILY pen needle, diabetic (BD Cande 2nd Gen Pen Needle) As directed 4 times daily HPI Comments Details: Patient is 57 year old female with DM type 2 diagnosed in November 2019 , who presents for management of diabetes. She was started on 25 mcg of levothyroxine in May 2020. Past medical history: DM2, HTN, HLD Micro and macrovascular complications: no complications Diabetes medications: Jardiance 25 mg, Trulicity 3mg per week metformin 1,000 mg BID not taking . Tresiba 50 units Novolog 5-7 units premeals Continuous glucose monitoring: Did not bring meter or CGMS to visit today Hypoglycemia: denies r Exercise: recently started walking with neighbor due to back issues. Certified Hyperbaric Technologist - CDE education: went to one diabetes education class. 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 Adjuster: goes regularly Last ophthalmology evaluation: .saw 2 mos a go Other specialists: orthopedist Laboratory Tests 05/20/20 05/20/21 05/20/21 Unknown 14:05 14:05 Creatinine 0.94 Estimated GFR > 60 Hemoglobin A1c % 8.5 LDL Cholesterol Direct TSH 1.16 Free T4 1.15 Thyroglobulin Antibody <1 Thyroid Peroxidase Ab <1 05/20/21 14:05 Creatinine Estimated GFR Hemoglobin A1c % LDL Cholesterol Direct 124 H TSH Free T4 Thyroglobulin Antibody [facility]roid Peroxidase Ab [facility] Medical History (Updated 10/08/22 @ 14:59 by Genie Mixon NP) Pulmonary nodules/lesions, multiple Chronic cough Chronic low back pain Obesity due to excess calories Hyperlipidemia LDL goal <100 Diabetes mellitus with hyperglycemia, without long-term current use of insulin Opiate addiction Degenerative disc disease, lumbar Obstructive sleep apnea on CPAP Attention deficit disorder (ADD) Depression Essential hypertension Surgical History Hx of hand surgery Hx of foot surgery Hx of mammogram History of lumbar fusion Family History Brother Diabetes mellitus Father Diabetes mellitus Mother Diabetes mellitus Coronary artery disease Son Opiate addiction Daughter Attention deficit disorder (ADD), child, with hyperactivity Other Mental health disorder Substance use disorder Social History Household Members: Spouse Housing: House Alcohol intake: current Alcohol intake frequency: does not drink Patient Tobacco Use Status: Never used Tobacco e-Cigarette/Vaping Use: Never Used Current occupational status: unemployed Cognitive needs: No Hearing needs: No Vision needs: No Physical Exam Vital Signs: Last Vital Signs Pulse 94 07/19/23 08:01 BP 144/88 H 07/19/23 08:01 BMI result Body Mass Index 40.3 Absence of Cushingoid features. Absence of acromegalic features. Neck exam reveals nl size thyroid about 15 gms. No thyroid nodules palpable. No carotid bruits present. Lungs CTA. Heart S1 S2, Reg R/R. No M/R/ G. Skin exam reveals absence of vitiligo or acanthosis nigricans. Abdominal exam reveals Soft NT/ND with NA BS. No organomegaly present. Neck Other: . Extrem Other: Visual exam of foot performed. No ulcerations or open lesions. No onchomycosis, no callouses.Pulses 2 + distally Sensation intact to monofilament exam. Vibratory sensation sensed is Decreased with 128 Hz tuning fork Results AMB Hemoglobin A1c AMB Hemoglobin A1c 13.7 % Last Edit by CHRISTOS Luther on 07/19/23 08:23 Results Reviewed Results Reviewed: Laboratory Last Values Glucose (Clinic) 277 mg/dL (60-115) H 07/19/23 08:09 Assessment & Plan Assessment & Plan (1) Diabetes mellitus with hyperglycemia, without long-term current use of insulin: Code(s): E11.65 - Type 2 diabetes mellitus with hyperglycemia Category: Medical Qualifiers: Diabetes mellitus type: type 2 Qualified Code(s): E11.65 - Type 2 diabetes mellitus with hyperglycemia Plan: This 57-year-old white female with a history of type 2 diabetes being treated with metformin, Jardiance and Trulicity as well as basal -bolus insulin with poor glycemic control a known microvascular r complications namely microalbuminuria Plan is to have the patient scan more frequently with the Leida and bring the sensor to follow-up visit. I gave her samples of Leida 3 Have her follow up with the certified breastfeeding educator I can not make any adjustments to the patient's regimen considering lack of data. We did again review the relationship a poor glycemic control to development and progression of complications of diabetes (2) Essential hypertension: Code(s): I10 - Essential (primary) hypertension Category: Medical Plan: Not addressed during this visit (3) Subclinical hypothyroidism: Code(s): E03.9 - Hypothyroidism, unspecified Category: Medical Plan: Clinically and biochemically euthyroid on 25 mcg levothyroxine. Will continue current management. At this point, in terms of the hypothyroidism, the patient returned to the care of her primary care provider back to endocrinology as needed Orders: Orders AMB Hemoglobin A1c Today E11.65 - Type 2 diabetes mellitus with hyperglycemia, Z13.9 - Encounter for screening, unspecified Coding Level of Care Code Est Pt Level 4 (19425) Diagnoses Type 2 diabetes mellitus with hyperglycemia, without long-term current use of insulin E11.65 Diabetes mellitus type: type 2 Essential hypertension I10 Subclinical hypothyroidism E03.9
[2023-07-19 08:13] LABS: Glucose, Whole Blood 277 mg/dL (60-115)
== END 2023-07-19 08:29 | disposition home or self-care (01) ==
PROVIDERS: PCP Internal Medicine; Visit Provider Internal Medicine Endocrinology, Diabetes & Metabolism
DX: E11.65 Type 2 diabetes mellitus with hyperglycemia (principal); I10 Essential (primary) hypertension; E03.9 Hypothyroidism, unspecified; Z13.9 Encounter for screening, unspecified
CPT/HCPCS: 99214

== ENCOUNTER → 2023-07-19 07:59 | Outpatient (BNVA) | payer OTHER, SELFPAY | PROVIDERS: PCP Internal Medicine; Visit Provider Internal Medicine Endocrinology, Diabetes & Metabolism | DX: E11.65 Type 2 diabetes mellitus with hyperglycemia (principal); I10 Essential (primary) hypertension; E03.9 Hypothyroidism, unspecified; Z79.4 Long term (current) use of insulin | CPT/HCPCS: 82947; 83036 ==

== ENCOUNTER 2023-09-06 09:00 | Outpatient (AMB) | payer OTHER, SELFPAY ==
--- NOTE | 2023-09-06 09:42 | MHC.AMDMED ---
Intake Intake Visit Reasons: DM Rubber Cutter Required: No Accompanied by: Self / Same As Patient Allergies No Known Allergies Allergy (Verified 07/19/23 08:07) HPI Comprehensive Diabetes Asmnt Most Recent Diabetes Results: Microalb/Creat Ratio 181.4 ug/mg cr (<30) H 03/16/23 Cholesterol 141 mg/dL (<200) 03/16/23 HDL Cholesterol 18 mg/dL (>40) L 03/16/23 Triglycerides 466 mg/dL (<150) H 03/16/23 Creatinine 0.95 mg/dL (0.5-1.4) 03/16/23 Blood Urea Nitrogen 10 mg/dL (9-16) 03/16/23 Sodium 136 mmol/L (135-145) 03/16/23 Potassium 3.6 mmol/L (3.3-5.1) 03/16/23 Chloride 101 mmol/L (96-108) 03/16/23 Carbon Dioxide 24 mmol/L (22-29) 03/16/23 Calcium 9.1 mg/dL (8.4-10.2) 03/16/23 [facility] Medical History (Updated 10/08/22 @ 14:59 by Genie Mixon NP) Pulmonary nodules/lesions, multiple Chronic cough Chronic low back pain Obesity due to excess calories Hyperlipidemia LDL goal <100 Diabetes mellitus with hyperglycemia, without long-term current use of insulin Opiate addiction Degenerative disc disease, lumbar Obstructive sleep apnea on CPAP Attention deficit disorder (ADD) Depression Essential hypertension Surgical History Hx of hand surgery Hx of foot surgery Hx of mammogram History of lumbar fusion Family History Brother Diabetes mellitus Father Diabetes mellitus Mother Diabetes mellitus Coronary artery disease Son Opiate addiction Daughter Attention deficit disorder (ADD), child, with hyperactivity Other Mental health disorder Substance use disorder Social History Household Members: Spouse Housing: House Alcohol intake: current Alcohol intake frequency: does not drink Patient Tobacco Use Status: Never used Tobacco e-Cigarette/Vaping Use: Never Used Current occupational status: unemployed Cognitive needs: No Hearing needs: No Vision needs: No Assessment & Plan Assessment & Plan (1) Diabetes mellitus with hyperglycemia, without long-term current use of insulin: Code(s): E11.65 - Type 2 diabetes mellitus with hyperglycemia Qualifiers: Diabetes mellitus type: type 2 Qualified Code(s): E11.65 - Type 2 diabetes mellitus with hyperglycemia Plan: Patient at visit for follow-up blood glucose check, and diabetes education At visit today patient reports that she is out of Tresiba, taking Jardiance 10 mg 2 tabs daily, Trulicity 3 mg weekly, NovoLog prior to meals as prescribed Patient ran of sensors approximately a month ago, has not been checking glucose since. At visit today patient became weepy when discussing how it is difficult for her to control her eating especially under stress. Patient does have a psychiatrist, suggested that she ask psychiatrist for suggestions on mental health program for compulsive eating Patient given contact information and list of Overeaters Anonymous meetings in the area Message sent to Dr. Juarez, 2 refill patient's prescriptions at [facility] emphasize with patient the dangers of long-term hyperglycemia, and the complications from diabetes. patient acknowledges that she has friends and family that have experienced complications from diabetes. Patient reports blood sugars below:Pt did not bring meter to visit Plan/Goal: patient will contact reliable Diabetes with change of insurance, so she can resume getting Leida 3 sensors. Patient will contact [employer] overeaters anonymous, to get some support for compulsive eating Patient will follow-up with informatics educator in 1 month Portions of this note were created using voice recognition software, please excuse any words or phrases that may have been misinterpreted. Patient Instructions: Diabetes Education nurse in 1 month Coding Level of Care Code Est Pt Level 1 (69884) Diagnoses Type 2 diabetes mellitus with hyperglycemia, without long-term current use of insulin E11.65 Diabetes mellitus type: type 2
== END 2023-09-06 09:43 | disposition home or self-care (01) ==
PROVIDERS: PCP Internal Medicine; Visit Provider Registered Nurse Diabetes Educator
DX: E11.65 Type 2 diabetes mellitus with hyperglycemia (principal)

== ENCOUNTER → 2023-09-06 09:00 | Outpatient (BNVA) | payer OTHER, SELFPAY | PROVIDERS: PCP Internal Medicine; Visit Provider Registered Nurse Diabetes Educator | DX: E11.65 Type 2 diabetes mellitus with hyperglycemia (principal) | CPT/HCPCS: 99211 ==